=== PATIENT | male | born 1935 | race Caucasian/White ===

== ENCOUNTER → 2019-10-10 09:14 | Outpatient (BNVA) | payer MEDICARE, MEDICAID, SELFPAY | PROVIDERS: Family Provider Family Medicine; PCP Family Medicine; Visit Provider Urology | DX: R33.9 Retention of urine, unspecified (principal); N39.44 Nocturnal enuresis; N40.1 Benign prostatic hyperplasia with lower urinary tract symptoms; N13.8 Other obstructive and reflux uropathy | CPT/HCPCS: 81001 ==

== ENCOUNTER 2019-10-22 09:10 | Outpatient (CLI) | payer MEDICARE, MEDICAID, SELFPAY ==
[2019-10-22 09:23] VITALS: BMI 33.0
--- NOTE | 2019-10-22 09:26 | ECG_ITS ---
NAME OF STUDY: LEXISCAN SESTAMIBI STRESS TEST INDICATION: Coronary Artery Disease PROCEDURE: At the baseline, the blood pressure was 181/93 mm Hg, oxygen saturation 95% with a heart rate of 89 bpm. The electrocardiogram showed normal sinus rhythm, right bundle branch block. The Lexiscan was infused over a period of 20 seconds. A total of 0.4 milligrams of Lexiscan was infused. The stress phase was continued for a total of 5 minutes. Heart rate at the end of the stress phase was 95 bpm, oxygen saturation 95% with a blood pressure 182/96 mmHg. The EKG at the peak infusion revealed sinus rhythm with isolated PVC and no significant ST-T wave changes. Sestamibi was injected 20 seconds after the Lexiscan infusion. Blood pressure at the end of the recovery phase was 181/87 mmHg, oxygen saturation 94% with a heart rate of 96 beats per minute. CONCLUSION: 1. No significant EKG changes with the LexiScan infusion. 2. No LexiScan induced chest pain or cardiac arrhythmia. 3. Baseline hypertension with normal blood pressure and heart rate response. 4. Sestamibi/sestamibi perfusion scan pending; see separate report. Electronically Signed On 10-22-2019 14:52:29 CDT by Ene Alexander M.D. [id number]
--- NOTE | 2019-10-22 09:27 | NMCV_ITS ---
NM yunior perf SPECT r/s* [id number] Dev Laura Age: 84 Gender: M : 1935 Exam Date: 10/22/2019 10:25 Ordering Phys: Ene Alexander MD ([email or web address]) Technologist: DAYSI Carey Exam Location: [facility] Indications: ATHEROSCLEROTIC HEART DISEASE OF [place] CORONARY ARTERY STRESS TEST [facility] IMAGE PROTOCOL Rest/Stress 1 Lexiscan Day Radiopharmaceutical Dose (mCi) Administration Site Administered by Rest: Tc-99m 11.0 IV DAYSI Bains Sestamibi Stress:Tc-99m 32.8 IV DAYSI Bains Sestamibi Rest: 22-Oct-2019 60 Discovery 630 Stress: 22-Oct-2019 30 Discovery 630 0.4mg Lexiscan. Images obtained in supine and prone position. SPECT RESULTS Technical Quality: Excellent Raw Data Analysis: Normal Image Corrections: No attenuation or motion correction applied Summed Stress Score: 3 Summed Rest Score: 1 Summed Difference Score: 2 PERFUSION FINDINGS Small size perfusion abnormality of mild severity of mid inferior and mid inferolateral tsang on supine stress images with improved tracer uptake on prone stress images. This is suggestive of attenuation artifact. FUNCTIONAL RESULTS (calculated via Gated SPECT) Stress Image LV EF (%): 73 Stress EDV (mL):90 TID: 0.98 Stress ESV (mL):24 FUNCTIONAL FINDINGS: The left ventricle is normal in size. Transient Ischemia Dilatation of 0.98. There is normal left ventricular systolic function. The left ventricular ejection fraction is normal with a value of 73%. There is normal left ventricular wall thickening. Normal end-diastolic volume of 90 mL and end-systolic volume of 24 mL. IMPRESSIONS 1. Small sized perfusion abnormality of mild severity of mid inferior and mid inferolateral tsang with improved tracer uptake on prone stress images. This is suggestive of attenuation artifact. 2. Overall left ventricular systolic function is normal without regional wall motion abnormalities. 3. The left ventricular ejection fraction is normal with a value of 73%. 4. This study suggests a low likelihood of angiographically significant coronary artery disease. Ene Alexander MD (Electronically Signed) Final Date: 22 October 2019 15:04 S
--- NOTE | 2019-10-22 11:12 | SUR.PREOP ---
Patient reports no pain or discomfort prior to the start of the procedure.
[2019-10-22] MEDS: regadenoson 0.4 Mg/5 ml Syringe IVP (11:22)
[2019-10-22 11:31] VITALS: BP 181/87; PULSE 98
== END 2019-10-22 09:11 | disposition home or self-care (01) ==
LOC: RAD 09:15
PROVIDERS: Family Provider Family Medicine; PCP Family Medicine; Visit Provider Internal Medicine Cardiovascular Disease
DX: I25.10 Atherosclerotic heart disease of native coronary artery without angina pectoris (principal)
CPT/HCPCS: 78452; 93017; A9500; J2785

== ENCOUNTER → 2020-04-03 09:53 | Outpatient (BNVA) | payer MEDICARE, MEDICAID, SELFPAY | PROVIDERS: Family Provider Family Medicine; PCP Family Medicine; Visit Provider Urology | DX: N40.1 Benign prostatic hyperplasia with lower urinary tract symptoms (principal); N13.8 Other obstructive and reflux uropathy; R82.81 Pyuria; R33.9 Retention of urine, unspecified; N20.9 Urinary calculus, unspecified | CPT/HCPCS: 80053; 81001 ==

== ENCOUNTER → 2021-03-18 13:32 | Outpatient (BNVA) | payer MEDICARE, MEDICAID, SELFPAY | PROVIDERS: Family Provider Family Medicine; PCP Family Medicine; Visit Provider Urology | DX: N20.9 Urinary calculus, unspecified (principal); R82.81 Pyuria; N40.1 Benign prostatic hyperplasia with lower urinary tract symptoms; R33.9 Retention of urine, unspecified; N13.8 Other obstructive and reflux uropathy | CPT/HCPCS: 81003; 87086 ==

== ENCOUNTER 2021-04-08 07:19 | Outpatient (CLI) | payer MEDICARE, MEDICAID, SELFPAY ==
--- NOTE | 2021-04-08 07:15 | US_ITS ---
WS: [id number] ULTRASOUND RENAL TECHNIQUE: Ultrasound examination of both kidneys. CLINICAL INFORMATION: OBSTRUCTION COMPARISON: None. FINDINGS: RIGHT: Right kidney Echogenicity: Normal. Cortical thickness: 1.4 cm; Normal. Hydronephrosis: Mild Perinephric fluid: None. Right kidney measures: 12.3 cm x 4.8 cm x 5.2 cm. LEFT: Left kidney Echogenicity: Normal. Cortical thickness: 0.9 cm; Normal. Hydronephrosis: Mild Perinephric fluid: None. Left kidney measures: 13.3 cm x 5.5 cm x 6.2 cm. Normal visualized aorta. Pacheco catheter. Small amount of debris in the bladder. US/US renal BI* [id number] IMPRESSION: 1. Persistent mild bilateral hydronephrosis appears improved compared to . 2. Pacheco catheter.
== END 2021-04-08 07:20 | disposition home or self-care (01) ==
LOC: RAD 07:23
PROVIDERS: PCP Family Medicine; Visit Provider Urology
DX: N13.8 Other obstructive and reflux uropathy (principal); N40.1 Benign prostatic hyperplasia with lower urinary tract symptoms; Z96.0 Presence of urogenital implants
CPT/HCPCS: 76770; 80048

== ENCOUNTER 2021-04-17 08:01 | Outpatient (CLI) | payer MEDICARE, MEDICAID, SELFPAY ==
--- NOTE | 2021-04-17 08:30 | CT_ITS ---
WS: [id number] CT ABDOMEN AND PELVIS NONCONTRAST HISTORY: bilateral hydronephrosis TECHNIQUE: Imaging performed through the abdomen and pelvis. Coronal and sagittal reformats are submi tted. All CT scans at [facility] use at least one of these dose optimization techniques: auto mated exposure control; mA and/or kV adjustment per patient size (includes targeted exams where dose is matched to clinical indication); or iterative reconstruction. DLP: 1859.46 mGy.cm COMPARISON: Renal ultrasound 04/08/2021 Lower thorax: Lung bases are clear. Visualized heart is normal. Small hiatal hernia. Liver: Liver is mildly enlarged with decreased attenuation from hepatic steatosis. Variable density w ithin the liver are related to areas of sparing and fatty infiltration. Gallbladder: Normal gallbladder. Pancreas: Mild fatty replacement. No mass or duct dilatation. Spleen: Normal. Adrenal glands: Normal. No mass. Right kidney: Mild perinephric stranding. Very mild dilatation of the RIGHT renal pelvis and RIGHT ur eter. No obstructing stones. Left kidney: Mild perinephric stranding with mild to moderate hydronephrosis and hydroureter. Periure teral stranding around the ureter. No obstructing calcification or stones. LEFT obstruction is slight ly greater than the RIGHT. Aorta: Moderate to severe atherosclerosis abdominal aorta. No aneurysm. Atherosclerosis continues int o the common iliac arteries. No free fluid, intraperitoneal air or significant lymphadenopathy. There are a few scattered mesenter ic lymph nodes and retroperitoneal lymph nodes are subcentimeter and probably normal. GI tract: Normal appendix. No obstruction of the colon or wall thickening. Abdominal wall: Fat-containing umbilical hernia. Pelvis: Pacheco catheter present within a minimally distended urinary bladder. There is marked thickeni ng of the bladder wall measuring up to 18 mm. Ureters enter into the bladder wall thickening. No free fluid. No adenopathy. Prostate gland is enlarged with central calcifications. Inguinal canals are pa tent bilaterally containing fat. Osseous structures: Lumbar spondylitic changes. Large anterior osteophytes at L2-3. Mild narrowing of the hip joints bilaterally. CT/CT abdomen pelvis wo con [id number] IMPRESSION: 1. Bilateral hydronephrosis, mild on the RIGHT and mild to moderate on the LEF T. Obstruction appears to be related to diffuse circumferential bladder wall th ickening. 2. Pacheco catheter in the urinary bladder with diffuse bladder wall thickening measuring up to 18 mm in diameter. 3. Subcentimeter mesenteric and retroperitoneal lymph nodes. Do not fit criter ia for adenopathy. 4. Mild bilateral perinephric stranding. 5. Moderate atherosclerosis within the aorta.
== END 2021-04-17 08:02 | disposition home or self-care (01) ==
LOC: CT 08:04
PROVIDERS: PCP Family Medicine; Visit Provider Urology
DX: N13.30 Unspecified hydronephrosis (principal); I70.0 Atherosclerosis of aorta; Z96.0 Presence of urogenital implants
CPT/HCPCS: 74176

== ENCOUNTER → 2021-05-14 09:48 | Outpatient (BNVA) | payer MEDICARE, MEDICAID, SELFPAY | PROVIDERS: PCP Family Medicine; Visit Provider Urology | DX: R33.9 Retention of urine, unspecified (principal); R82.81 Pyuria | CPT/HCPCS: 81003; 87077; 87086; 87184 ==

== ENCOUNTER → 2021-07-21 10:01 | Outpatient (BNVA) | payer MEDICARE, MEDICAID, SELFPAY | PROVIDERS: PCP Family Medicine; Visit Provider Urology | DX: N13.30 Unspecified hydronephrosis (principal); N39.0 Urinary tract infection, site not specified | CPT/HCPCS: 81003 ==

== ENCOUNTER 2021-07-27 13:08 | Outpatient (CLI) | payer MEDICARE, MEDICAID, SELFPAY ==
--- NOTE | 2021-07-27 13:11 | US_ITS ---
WS: [id number] ULTRASOUND RENAL TECHNIQUE: Ultrasound examination of both kidneys. CLINICAL INFORMATION: CKD, STAGE 4; BENIGN PROSTATIC HYPERPLASIA COMPARISON: CT April 17, 2021 and ultrasound April 08, 2021 FINDINGS: Moderate bilateral hydronephrosis with proximal ureterectasis. RIGHT: Echogenicity: Normal. Cortical thickness: 1.3 cm; Normal. Hydronephrosis: None. Perinephric fluid: None. Right kidney measures: 12.4 cm x 4.9 cm x 5.8 cm. LEFT: Echogenicity: Normal. Cortical thickness: 1.3 cm; Normal. Hydronephrosis: None. Perinephric fluid: None. Left kidney measures: 13.6 cm x 4.5 cm x 6.7 cm. Normal visualized aorta. Post void bladder residual 200 cc with multiple diverticula. Numerous intral uminal small bladder polyps. Diffuse bladder wall thickening. Largest diverticuli measures 2 to 3 cm US/US renal BI with PV bladder IMPRESSION: 1. Post void bladder residual volume 200 cc 2. Diffuse bladder wall thickening with numerous small polyps and diverticuli 3. Moderate bilateral hydronephrosis and proximal ureterectasis. This appears progressed compared to CT April 17, 2021 and ultrasound April 08, 2021
== END 2021-07-27 13:09 | disposition home or self-care (01) ==
LOC: RAD 13:10
PROVIDERS: PCP Family Medicine; Visit Provider Nurse Practitioner Family
DX: N18.4 Chronic kidney disease, stage 4 (severe) (principal); N40.1 Benign prostatic hyperplasia with lower urinary tract symptoms; N13.30 Unspecified hydronephrosis
CPT/HCPCS: 76770; 76857

== ENCOUNTER 2021-10-26 08:55 | Outpatient (CLI) | payer MEDICARE, MEDICAID, SELFPAY ==
[2021-10-26 10:12] LABS: Add Urine Culture? No; Bacteria Urine TRACE /hpf
[2021-10-26 10:26] LABS: Albumin Level 4.1 g/dL (3.5-5.2); Ferritin 196 ng/mL (30-400); Iron 62 ug/dL (59-158); Magnesium 2.1 mg/dL (1.7-2.3); Phosphorus 3.5 mg/dL (2.5-4.5); Urine Creatinine 59 mg/dL (39-259)
[2021-10-26 10:31] LABS: Total Protein, Random Urine 60.3 mg/dL (0.0-20.0)
[2021-10-26 10:36] LABS: Calcium 8.8 mg/dL (8.5-10.5)
[2021-10-26 10:42] LABS: Parathyroid Hormone 85.5 pg/mL (15-65)
== END 2021-10-26 08:56 | disposition home or self-care (01) ==
LOC: LAB 08:59
PROVIDERS: PCP Family Medicine; Visit Provider Nurse Practitioner Family
DX: N18.4 Chronic kidney disease, stage 4 (severe) (principal)
CPT/HCPCS: 81001; 82040; 82310; 82570; 82728; 83540; 83735; 83970; 84100; 84156; 84550

== ENCOUNTER 2022-08-10 01:00 | Outpatient (CLI) | payer MEDICARE, MEDICAID, SELFPAY ==
[2022-08-10 11:31] LABS: Basophils # 0.1 10^3/uL (0.0-0.1); Basophils % 0.7 %; Eosinophils # 0.2 10^3/uL (0.0-0.8); Eosinophils % 1.2 %; Hematocrit 26.6 % (42.0-52.0); Hemoglobin 8.6 g/dL (11.7-16.6); Lymphocytes # 6.3 10^3/uL (0.8-4.8); Lymphocytes % 51.1 %; Mean Corpuscular HGB Conc 32.3 g/dL (30.0-36.0); Mean Corpuscular Hemoglobin 29.6 pg (28.0-34.0); Mean Corpuscular Volume 91.4 fl (80-94); Mean Platelet Volume 10.4 fL (7.4-10.4); Monocytes % 7.8 %; Neutrophils # 4.04 10^3/uL (1.8-7.7); Nucleated Red Blood Cells # 0.2 /100WBC; Nucleated Red Blood Cells % 1.6 %; Platelet Count 49 10^3/cmm (130-400); Red Blood Count 2.91 10^6/uL (4.1-5.3); Red Cell Distribution Width 15.7 % (12.1-15.1); White Blood Count 12.2 10^3/uL (4.0-10.0)
[2022-08-10 11:34] LABS: Slide Review Slide Review Perform
[2022-08-10 11:44] LABS: LAB Peripheral Smear Sent for Review
[2022-08-11 14:50] LABS: Leukemia Profile (BBPL) See Report
[2022-08-11 14:51] LABS: Lymphoma Profile (BBPL) See Report
== END 2022-08-10 23:00 | disposition home or self-care (01) ==
LOC: LAB 08-16 15:30
PROVIDERS: PCP Family Medicine; Visit Provider Family Medicine
DX: D72.820 Lymphocytosis (symptomatic) (principal); D64.9 Anemia, unspecified; D69.6 Thrombocytopenia, unspecified
CPT/HCPCS: 36415; 80503; 85025; 88184; 88185

== ENCOUNTER 2022-08-19 06:11 | Outpatient (CLI) | payer MEDICARE, MEDICAID, SELFPAY ==
--- NOTE | 2022-08-19 06:30 | US_ITS ---
WS: [id number] Bilateral renal ultrasound, 08/19/2022 Clinical Data: hydronephrosis Comparison: Renal ultrasound, 07/27/2021 Findings: The right kidney measures 11.6 cm x 6.5 cm x 6.4 cm and the left kidney is 12.1 cm x 6.3 cm x 7.1 cm. There is bilateral renal pelvic dilatation. There are no cysts, masses. The renal cortical margin is normal. No renal calculi are seen. The abdominal aorta shows no vascular abnormalities. The bladder shows irregularity of the wall and numerous diverticula. US/US renal BI* [id number] Impression: 1. Moderate bilateral hydronephrosis unchanged. 2. Bladder wall thickening with probable polyps and numerous diverticula.
== END 2022-08-19 06:12 | disposition home or self-care (01) ==
LOC: RAD 06:12
PROVIDERS: PCP Family Medicine; Visit Provider Internal Medicine Medical Oncology
DX: N13.30 Unspecified hydronephrosis (principal); N32.3 Diverticulum of bladder
CPT/HCPCS: 76770

== ENCOUNTER 2022-08-20 11:10 | Day surgery (SDC) | payer MEDICARE, MEDICAID, SELFPAY ==
[2022-08-19 10:20] VITALS: BMI 30.4
[2022-08-20 11:47] VITALS: BP 114/65; PULSE 87; RESP 18; TEMP 36.6; O2SAT 96
[2022-08-20 11:53] LABS: Glucose Point of Care 154 mg/dL (70-110)
[2022-08-20] MEDS: sodium chloride 0.9% 1,000 ML 30 ML IV (12:06)
--- NOTE | 2022-08-20 12:33 | ANES.PREANE2 ---
Pre-Anesthetic Assessment Height/Weight: Height 1.78 m Weight 96.162 kg Temp Pulse Resp BP Pulse Ox O2 Del Method 97.9 F 87 18 114/65 96 08/20/22 11:47 08/20/22 11:47 08/20/22 11:47 08/20/22 11:47 08/20/22 11:47 08/20/22 11:47 Operation Date: 08/20/22 12:45 Proposed Procedures p Bone Marrow Biospy With Aspiration(Not Applicable) - Rosanne Hebert MD Familial anesthetic complications: none Was Beta Charlie taken within 24 hours: N/A Was Clonidine taken within 24 hours: N/A Last intake: Intake Last Liquid Date 08/19/22 Last Liquid Time 19:00 Last Solid Date 08/19/22 Last Solid Time 19:00 Social No alcohol and No tobacco Exam alert, oriented x 3 and regular rate & rhythm Airway Submandibular: within normal limits Cervical ROM: within normal limits Mallampati: Class II Dentition: false Pulmonary Chronic Obstructive Pulmonary Disease and Sleep Apnea CV/HEM Hypertension CLL Metabolic Diabetes Mellitus, Hyperlipidemia and Morbid Obesity Anesthetic Plan ASA status: 3 Anesthesia: MAC Medications/Allergies Home Medications Medication Instructions Recorded Confirmed Last Taken Type amlodipine 5 mg tablet 5 mg PO DAILY 10/04/19 08/20/22 08/19/22 History glipizide 5 mg tablet 5 mg PO BID 10/04/19 08/20/22 08/19/22 History lovastatin 20 mg tablet 20 mg PO DAILY 10/04/19 08/20/22 08/19/22 History sitagliptin 50 mg tablet 25 mg PO DAILY 10/10/19 08/20/22 08/19/22 History ascorbic acid (vitamin C) 1,000 mg 1 g PO BID 04/08/21 08/20/22 08/19/22 History tablet insulin aspar prot-insulin aspart 5 unit SUBCUT .sliding scale 04/08/21 08/20/22 08/19/22 History 100 unit/mL (70-30) subcutaneous pen (Novolog Mix 70-30FlexPen U-100) hydrocodone 10 mg-acetaminophen 1 tab PO Q6H PRN pain 30 days #120 08/17/22 08/20/22 08/19/22 Rx 325 mg tablet tabs morphine 15 mg tablet,extended 15 mg PO Q12H 30 days #60 tabs 08/17/22 08/20/22 08/20/22 Rx release sennosides 8.6 mg-docusate sodium 2 tab-cap PO BID PRN constipation 08/17/22 08/20/22 08/19/22 Rx 50 mg capsule (Senna Plus) #120 caps finasteride 5 mg tablet 5 mg PO DAILY 08/20/22 08/20/22 08/19/22 History tamsulosin 0.4 mg capsule 0.4 mg PO BID 08/20/22 08/20/22 08/19/22 History Allergies Allergy/AdvReac Type Severity Reaction Status Date / Time No Known Allergies Allergy Verified 08/20/22 11:39 Current Medications Generic Name Dose Route Start Last Admin Trade Name Freq PRN Reason Stop Dose Admin Sodium Chloride 1,000 mls @ 30 mls/hr 08/20/22 11:45 08/20/22 12:06 Sodium Chloride 0.9% IV 08/21/22 11:44 30 mls/hr .Q24H ALFRED Administration PFSH Anesthesia Medical History (Updated 08/18/22 @ 07:56 by Jeff Matthew MD) Bilateral hydronephrosis BPH with urinary obstruction Chronic kidney disease Diabetes Elevated PSA History of bladder stone CYSTOLITHOLAPAXY,LASER LITHOTRIPSY HTN (hypertension) Hyperlipidemia Nocturnal enuresis Recurrent UTI Urinary retention Urolithiasis Surgical History (Updated 08/18/22 @ 07:57 by Jeff Matthew MD) History of lithotripsy History of right cataract extraction Family History Father , AT AGE 64 Myocardial infarction Brother Myocardial infarction H/O CABG in 80's Brother CAD (coronary artery disease) Mother , AT AGE 85 CAD (coronary artery disease) Sister CAD (coronary artery disease) Other Diabetes Heart failure Social History Quit status (tobacco): has quit using tobacco Year quit tobacco: 1979 Alcohol intake: former Adopted: No Caregiver/support person: No Lives independently: No Marital status: / Current occupational status: retired History of recent travel: No Current gender identity: Male Data Anesthesia Cardiac Studies: Sestamibi Stress Test (Cardiology) 10/22/19
--- NOTE | 2022-08-20 12:54 | W.PM.OPSUD ---
Surgery/Procedure H&P Update DATE OF PROCEDURE: August 20, 2022 DATE H&P PERFORMED: 08/20/22 CHANGES TO PREVIOUS DOCUMENTATION: Patient seen and examined, no new changes since his visit to Dr. Matthew's office. His lab work-up was reviewed which showed thrombocytopenia, anemia and as his PSA level is more than 600, his osseous lesions are Probably due to metastatic prostate cancer rather than other primary like myeloma. Case was discussed with Dr. Matthew and About new information e.g. elevated PSA level ,he suggested to cancel the bone marrow procedure. And Dr. Matthew has prescribed bicalutamide 50 mg p.o. daily and patient will follow-up with him in his clinic for further planning and management. Patient and his son were informed about cancellation of bone marrow due to new information e.g. Elevated PSA level indicating Probability of bone mets from metastatic prostate cancer. PLANNED PROCEDURE: Operation Date: 08/20/22 12:45 Proposed Procedures p Bone Marrow Biospy With Aspiration(Not Applicable) - Rosanne Hebert MD
--- NOTE | 2022-08-20 13:03 | PC.NURSE ---
Dr Hebert canceled bone marrow after discussing lab results and case with Dr Matthew again. Family at bedside. All verbalized understanding.
== END 2022-08-20 13:10 | disposition home or self-care (01) ==
LOC: GILAB 11:13
PROVIDERS: PCP Family Medicine; Visit Provider Internal Medicine Hematology & Oncology
PROC: 07DT3ZX Extraction of Bone Marrow, Percutaneous Approach, Diagnostic (ICD-10-PCS; CPT 38222; principal; 2022-08-20 12:45)
DX: C91.10 Chronic lymphocytic leukemia of B-cell type not having achieved remission (principal); Z53.8 Procedure and treatment not carried out for other reasons
CPT/HCPCS: 36415; 36416; 82962; J2704; J7030

== ENCOUNTER 2022-08-25 16:08 | Inpatient (IN) | payer MEDICARE, MEDICAID, SELFPAY ==
--- NOTE | 2022-08-25 16:43 | PM.HP ---
Providers/Chief Complaint Admitting Physician: Daryl Phelps MD Primary Care Provider: Janett Phelps MD Chief Complaint: Acute kindney injury, prostate cancer, dehydration History of Present Illness Dev Laura is a 87 year old male presenting as a direct admission from oncology clinic with acute kidney injury. He has had failure to thrive lately with strict menaced p.o. intake, rising creatinine, recent diagnosis of prostate cancer and CLL. He has been having issues urinating and a Pacheco was placed today in oncology clinic for a residual of 500 cc and a renal ultrasound showing bilateral hydronephrosis, moderate with bladder wall thickening. Preceding this patient has had some back pain, since April. He has had diminished energy. He has had difficulty urinating for quite some time. Review of Systems General: Reports: 10 or more systems reviewed and unremarkable except in HPI and below Const: Reports: fatigue; Denies: fever(s) or chills Eyes: Denies: change in vision ENMT: Denies: throat pain Card: Denies: chest pain Resp: Denies: dyspnea GI: Reports: early satiety; Denies: hematochezia or melena : Reports: difficulty urinating Musc: Reports: back pain Skin/Breast: Denies: rash Neuro: Denies: headache(s) Psych: Denies: anxiety or depression Endo: Denies: polyuria Jeff/Lymph: Denies: easy bruising All/Imm: Denies: urticaria Medications/Allergies Home Medications Medication Instructions Recorded Confirmed Last Taken Type lovastatin 20 mg tablet 20 mg PO DAILY 10/04/19 08/24/22 08/19/22 History ascorbic acid (vitamin C) 1,000 mg 1 g PO BID 04/08/21 08/24/22 08/19/22 History tablet hydrocodone 10 mg-acetaminophen 1 tab PO Q6H PRN pain 30 days #120 08/17/22 08/24/22 08/19/22 Rx 325 mg tablet tabs morphine 15 mg tablet,extended 15 mg PO Q12H 30 days #60 tabs 08/17/22 08/24/22 08/20/22 Rx release sennosides 8.6 mg-docusate sodium 2 tab-cap PO BID PRN constipation 08/17/22 08/24/22 08/19/22 Rx 50 mg capsule (Senna Plus) #120 caps bicalutamide 50 mg tablet 50 mg PO DAILY #30 tabs 08/20/22 08/24/22 Unknown Rx finasteride 5 mg tablet 5 mg PO DAILY 08/20/22 08/24/22 08/19/22 History tamsulosin 0.4 mg capsule 0.4 mg PO BID 08/20/22 08/24/22 08/19/22 History lorazepam 1 mg tablet 0.5 - 1 mg PO Q6H PRN Severe 08/24/22 Unknown Rx Nausea #30 tabs prochlorperazine maleate 10 mg 10 mg PO Q4H PRN Mild Nausea #30 08/24/22 Unknown Rx tablet (Compazine) tabs methenamine hippurate 1 gram tablet 1 g PO BID 08/25/22 08/25/22 Unknown History Allergies Allergy/AdvReac Type Severity Reaction Status Date / Time No Known Allergies Allergy Verified 08/24/22 10:37 PFSH Acute PFSH: Medical History (Updated 08/25/22 @ 16:48 by Daryl Phelps MD) Bilateral hydronephrosis BPH with urinary obstruction Chronic kidney disease Chronic lymphocytic leukemia Diabetes Elevated PSA History of bladder stone CYSTOLITHOLAPAXY,LASER LITHOTRIPSY HTN (hypertension) Hyperlipidemia Nocturnal enuresis Prostate cancer Recurrent UTI Urinary retention Urolithiasis Surgical History History of lithotripsy History of right cataract extraction Family History Father , AT AGE 64 Myocardial infarction Brother Myocardial infarction H/O CABG in 80's Brother CAD (coronary artery disease) Mother , AT AGE 85 CAD (coronary artery disease) Sister CAD (coronary artery disease) Other Diabetes Heart failure Social History Quit status (tobacco): has quit using tobacco Year quit tobacco: 1979 Alcohol intake: former Adopted: No Caregiver/support person: No Lives independently: No Marital status: / Current occupational status: retired History of recent travel: No Current gender identity: Male Physical Exam Narrative: General exam demonstrates a conversive male, no distress HEENT: Atraumatic normocephalic pupils equally round. Oropharynx clear. Neck is supple no lymphadenopathy or thyromegaly Cardiovascular regular rate and rhythm without murmur, no S3 or S4 Lungs clear no wheezing or crackles Abdomen is soft, protuberant, positive bowel sounds. No obvious organomegaly. Umbilical hernia is noted easily reducible. exams deferred Extremities show trace edema bilaterally. No cyanosis or clubbing Skin no rash Neuro no focal deficits. Data Other Labs: CBC from yesterday reviewed. Platelet count 30,000, hemoglobin 9.8, white blood cell count 12.9 BMP from today reviewed and anion gap 19, bicarb 15, BUN 147, creatinine 2.9 up from his baseline around 2. Glucose slightly elevated at 147. Renal ultrasound on August 19, see reading A&P Assessment and plan (1) Acute kidney injury: Patient presents with acute kidney injury. This is most likely secondary to his bladder outlet obstruction, but certainly could be secondary to extracellular volume depletion and dehydration as well. Last residual checked was 500 cc. Urinary catheter was placed this morning in oncology clinic. Continue catheter Normal saline at 100 cc an hour Reassessment of bicarb in the morning. If drops/not improving could consider sodium bicarb by mouth Check urinalysis No further imaging of the urinary tract is likely needed. Check CK with a.m. labs (2) Bilateral hydronephrosis: Likely secondary to chronic bladder outlet obstruction He has been told to self cath intermittently in the past but has not been doing this Pacheco was placed this morning, will continue (3) Prostate cancer: Recently diagnosed with prostate cancer Continue Casodex Add dexamethasone 4 mg twice daily. Discussed with oncology. Close follow-up of blood sugar (4) Chronic lymphocytic leukemia: This explains elevated white count, perhaps low platelets. He also has a degree of anemia. Will go ahead and check a haptoglobin level Secondary to thrombocytopenia anticoagulation is contraindicated (5) Diabetes: Sliding scale insulin Consistent carb diet, although I told his family if there are any specific desires considering his significant decrease in p.o. intake lately it would be okay to accommodate them. Plan Back pain, secondary to his prostate cancer with bony mets. Continue pain medicine as needed. Attestations Medical Necessity Statement*: Will need greater than 2 midnight stay secondary to acute kidney injury, significant urinary retention, severe thrombocytopenia Coding Level of Care Code Acute Media Developer for Lenny Keene Diagnoses Acute kidney injury N17.9 Bilateral hydronephrosis N13.30 Prostate cancer C61 Chronic lymphocytic leukemia C91.10 Diabetes E11.9
[2022-08-25] MEDS: morphine ER (12 HR) 15 mg Tablet PO (18:32)
[2022-08-25] MEDS: dexamethasone 4 mg Tablet PO (18:33)
[2022-08-25] MEDS: sodium chloride 0.9% 1,000 ML 100 ML IV (18:33)
[2022-08-25] MEDS: tamsulosin 0.4 mg Capsule PO (18:33)
[2022-08-25] MEDS: ascorbic acid 500 mg Tablet 1000 MG PO (18:33)
[2022-08-25] MEDS: insulin lispro 100 unit/1 mL SUBCUT ×2 (18:35→21:14)
[2022-08-25 20:00] VITALS: BP 127/67; PULSE 93; RESP 17; TEMP 36.7; O2SAT 96
[2022-08-26] VITALS: BP 152/72; PULSE 92; RESP 18; TEMP 36.4; O2SAT 95
[2022-08-26] MEDS: sodium chloride 0.9% 1,000 ML 100 ML IV ×2 (03:12→13:22)
[2022-08-26 04:00] VITALS: BP 135/70; PULSE 89; RESP 20; TEMP 36.7; O2SAT 95
[2022-08-26] MEDS: morphine ER (12 HR) 15 mg Tablet PO ×2 (05:32→18:47)
[2022-08-26 05:50] LABS: Basophils # 0.1 10^3/uL (0.0-0.1); Basophils % 0.6 %; Eosinophils # 0.1 10^3/uL (0.0-0.8); Eosinophils % 0.6 %; Hematocrit 26.9 % (42.0-52.0); Hemoglobin 8.5 g/dL (11.7-16.6); Lymphocytes # 6.6 10^3/uL (0.8-4.8); Lymphocytes % 53.1 %; Mean Corpuscular HGB Conc 31.6 g/dL (30.0-36.0); Mean Corpuscular Hemoglobin 29.5 pg (28.0-34.0); Mean Corpuscular Volume 93.4 fl (80-94); Mean Platelet Volume 10.3 fL (7.4-10.4); Monocytes # 0.9 10^3/uL (0.2-0.9); Monocytes % 7.2 %; Neutrophils # 4.04 10^3/uL (1.8-7.7); Neutrophils % 32.5 %; Nucleated Red Blood Cells # 0.2 /100WBC; Nucleated Red Blood Cells % 1.2 %; Red Blood Count 2.88 10^6/uL (4.1-5.3); Red Cell Distribution Width 16.5 % (12.1-15.1); White Blood Count 12.4 10^3/uL (4.0-10.0)
[2022-08-26 06:20] LABS: Platelet Count 23 10^3/cmm (130-400)
[2022-08-26 06:30] LABS: Alanine Aminotransferase 9 U/L (0-41); Albumin Level 3.1 g/dL (3.5-5.2); Alkaline Phosphatase 352 U/L (40-130); Anion Gap 19.4 (5-19); Aspartate Amino Transferase 13 U/L (0-40); Calcium 8.9 mg/dL (8.5-10.5); Carbon Dioxide 15 mmol/L (22-29); Chloride 113 mmol/L (98-107); Creatine Phosphokinase 33 U/L (39-308); Globulin 2.8 g/dL (1.3-4.6); Glucose 204 mg/dL (65-115); Magnesium 2.2 mg/dL (1.7-2.3); Potassium 5.4 mmol/L (3.5-5.1); Sodium 142 mmol/L (136-145); Total Bilirubin 0.4 mg/dL (0.15-1.2); Total Protein 5.9 g/dL (6.6-8.7)
[2022-08-26 06:38] LABS: Blood Urea Nitrogen 123 mg/dL (8-23); Osmolality Calculated 339 mOsm/kg (285-295)
[2022-08-26] MEDS: finasteride 5 mg Tablet PO (07:58)
[2022-08-26] MEDS: tamsulosin 0.4 mg Capsule PO ×2 (07:59→18:44)
[2022-08-26] MEDS: ascorbic acid 500 mg Tablet 1000 MG PO ×2 (07:59→18:44)
[2022-08-26] MEDS: dexamethasone 4 mg Tablet PO ×2 (07:59→18:44)
[2022-08-26 08:00] VITALS: BP 148/67; PULSE 92; RESP 17; TEMP 36.4; O2SAT 96
[2022-08-26] MEDS: sodium bicarbonate 650 mg Tablet PO ×2 (09:46→18:44)
[2022-08-26] MEDS: insulin lispro 100 unit/1 mL SUBCUT ×4 (09:46→20:40)
--- NOTE | 2022-08-26 10:57 | PC.CHAP ---
Pastoral Care Encounter/Spiritual Assessment Type of Contact [] Declined event mgr visit [] Patient/Family/Request visit [] Outpatient visit [] Follow-up visit [] Physician referral [] Code/Alert [x] Routine visit [] Staff referral [] Actively dying [] Patient sleeping [] Family support [] [] Out of room [] Palliative care [] [x] Receiving care in room [] Pre-surgical visit [] Trauma [] Long length of stay [] ICU visit [] Other: Relational/Emotional Strength [x] Patient feels connected with others/family/visitors/staff [] Distress [] Loneliness/isolation [] Abandonment Spirituality of Patient [x] Person of [place] [] Attends Advent of their [place] [x] Believes in Prayer [] Reads Bible or Alevism materials [] There are Spiritual issues to be addressed Rn Office Interventions [x] Prayer [x] Active listening [x] Non-anxious presence [x] Spiritual/emotional support [] Crisis/trauma care [x] Spiritual counseling [] Bereavement support [] Provided bereavement packet [] Provided Bible/devotional materials [] Provided toy/stuffed animal, coloring book to patient or family member [] Provided Communion [] Anointing/[place] [] Salvation [x] Completed spiritual assessment [] Other: Impact on Illness or Injury [] Angry [] Fearful [] Anxious [] Often cries [] Exhaustion [] Unable to work [] Unable to attend sikh [] Unable to walk/stand [] Unable to read [] Unable to drive [] Unable to eat/drink [] Unable to sleep [] Unable to be with family [] Patient intubated [] Other: Summary first time kindney infection has some negative feelings not sure when she can go home Time spent with patient 10 mins
--- NOTE | 2022-08-26 11:16 | P.PN_ITS ---
Subjective Subjective: Dev reports he feels little bit better. Reports he has less back pain. Medications: Reviewed: Yes Vitals/I&O/Wt Last Vital Signs Temp 97.6 F 08/26/22 08:00 Pulse 92 08/26/22 08:00 Resp 17 08/26/22 08:00 BP 148/67 08/26/22 08:00 Pulse Ox 96 08/26/22 08:00 O2 Del Method 08/25/22 18:16 08/25/22 08/26/22 08/26/22 22:59 06:59 14:59 Intake Total 100 / 100 1565 / 1665 Output Total 850 / 850 1550 / 2400 Balance -750 / -750 15 / -735 Physical Exam Narrative: General exam demonstrates a conversive male, no distress Neck is supple no lymphadenopathy or thyromegaly Cardiovascular regular rate and rhythm without murmur, no S3 or S4 Lungs clear no wheezing or crackles Abdomen is soft, protuberant, positive bowel sounds. No obvious organomegaly. Umbilical hernia is noted easily reducible. exams demonstrates Pacheco noted Extremities show trace edema bilaterally. No cyanosis or clubbing Skin no rash Urinary Catheter Management: Pacheco: Cath Placed During This Visit: no Reason for Continuing Indwelling Catheter: Acute Urinary Retention or Obstruction Data 08/26/22 05:01 08/26/22 05:01 A&P Assessment and plan (1) Acute kidney injury: Patient presents with acute kidney injury. This is most likely secondary to his bladder outlet obstruction, but certainly could be secondary to extracellular volume depletion and dehydration as well. Last residual checked was 500 cc. Urinary catheter was placed this morning in oncology clinic. Continue catheter Normal saline at 100 cc an hour Initiate bicarb Check urinalysis. Still awaiting No further imaging of the urinary tract is likely needed. CK was not elevated Renal function appears to be improving (2) Bilateral hydronephrosis: Likely secondary to chronic bladder outlet obstruction He has been told to self cath intermittently in the past but has not been doing this Pacheco was placed this morning, will continue (3) Prostate cancer: Recently diagnosed with prostate cancer Continue Casodex Continue dexamethasone 4 mg twice daily. Discussed with oncology. Close follow-up of blood sugar (4) Chronic lymphocytic leukemia: This explains elevated white count, perhaps low platelets. He also has a degree of anemia. Haptoglobin level not low Secondary to thrombocytopenia anticoagulation is contraindicated (5) Diabetes: Sliding scale insulin Consistent carb diet, although I told his family if there are any specific desires considering his significant decrease in p.o. intake lately it would be okay to accommodate them. Plan Back pain, secondary to his prostate cancer with bony mets. Continue pain medicine as needed. Attestations Medical Necessity Statement*: Needs continued hospital stay for close follow- up of acute kidney injury, currently slightly improved Coding Level of Care Code Acute Research Support Specialist for L[facility] Diagnoses Acute kidney injury N17.9 Bilateral hydronephrosis N13.30 Prostate cancer C61 Chronic lymphocytic leukemia C91.10 Diabetes E11.9
[2022-08-26 12:00] VITALS: BP 135/70; PULSE 104; RESP 16; TEMP 36.9; O2SAT 94
[2022-08-26] MEDS: polyethylene glycol 3350 Pkt 17 gm PO ×2 (13:22→18:43)
[2022-08-26 13:39] LABS: Add Urine Microscopic? YES; Bilirubin Urine Neg (Negative); Blood Urine 3+ (Negative); Glucose Urine UA Norm (Normal); Ketones Urine 1+ (Negative); Leukocyte Esterase Urine Trace (Negative); Nitrate Urine Negative (Negative); Protein Urine 2+ (Negative); Specific Gravity, Urine 1.015 (1.005-1.030); Urine Appearance Cloudy (CLEAR); Urine Color Yellow (Yellow); Urobilinogen Urine Neg (Negative); pH Urine 5 (5-7)
[2022-08-26 13:40] LABS: Add Urine Culture? No; Mucus Urine 1+ /hpf; RBC Urine 15-25 /hpf (0-2); Uric Acid Crystals Urine 0-4 /hpf
[2022-08-26] MEDS: bisacodyl 10 mg Supp PR (15:14)
[2022-08-26] MEDS: cefTRIAXone 1,000 MG in sodium chloride 0.9% (plus) 50 ML 100 MG IV (15:14)
[2022-08-26 16:00] VITALS: BP 100/44; PULSE 86; RESP 16; TEMP 36.4; O2SAT 96
[2022-08-26 17:37] LABS: Glucose Point of Care 466 mg/dL (70-110)
[2022-08-26 19:30] VITALS: BP 134/67; PULSE 90; RESP 16; TEMP 36.5; O2SAT 96
[2022-08-26 20:48] LABS: Glucose Point of Care 464 mg/dL (70-110)
[2022-08-26 20:48] LABS: Glucose Point of Care 468 mg/dL (70-110)
[2022-08-27] VITALS (11 sets, daily range): BP systolic 130–165; BP diastolic 60–72; PULSE 83–99; RESP 16–19; TEMP 36.4–36.7; O2SAT 92–97
[2022-08-27] MEDS: sodium chloride 0.9% 1,000 ML 100 ML IV ×3 (00:27→23:03)
[2022-08-27 05:08] LABS: Basophils # 0.1 10^3/uL (0.0-0.1); Basophils % 0.5 %; Eosinophils % 0.3 %; Hematocrit 25.8 % (42.0-52.0); Lymphocytes # 6.4 10^3/uL (0.8-4.8); Lymphocytes % 48.7 %; Mean Corpuscular Volume 93.5 fl (80-94); Mean Platelet Volume 11.6 fL (7.4-10.4); Neutrophils # 4.85 10^3/uL (1.8-7.7); Neutrophils % 37.1 %; Nucleated Red Blood Cells # 0.1 /100WBC; Nucleated Red Blood Cells % 0.8 %; Red Blood Count 2.76 10^6/uL (4.1-5.3); Red Cell Distribution Width 16.5 % (12.1-15.1); White Blood Count 13.1 10^3/uL (4.0-10.0)
[2022-08-27] MEDS: morphine ER (12 HR) 15 mg Tablet PO ×2 (05:22→16:39)
[2022-08-27 05:24] LABS: Platelet Count 23 10^3/cmm (130-400)
[2022-08-27 05:33] LABS: Anion Gap 17.7 (5-19); Carbon Dioxide 16 mmol/L (22-29); Chloride 113 mmol/L (98-107); Glucose 305 mg/dL (65-115); Magnesium 2.2 mg/dL (1.7-2.3); Osmolality Calculated 336 mOsm/kg (285-295); Potassium 5.7 mmol/L (3.5-5.1); Sodium 141 mmol/L (136-145)
[2022-08-27 06:16] LABS: Blood Urea Nitrogen 104 mg/dL (8-23)
[2022-08-27 06:40] LABS: Glucose Point of Care 350 mg/dL (70-110)
--- NOTE | 2022-08-27 06:52 | PM.PN ---
Subjective Subjective: Dev reports he feels okay. States he has more energy. No nausea. Medications: Reviewed: Yes Vitals/I&O/Wt Last Vital Signs Temp 97.9 F 08/27/22 04:00 Pulse 89 08/27/22 04:00 Resp 18 08/27/22 04:00 BP 136/72 08/27/22 04:00 Pulse Ox 95 08/27/22 04:00 O2 Del Method 08/25/22 18:16 08/26/22 08/26/22 08/27/22 14:59 22:59 06:59 Intake Total 925 / 925 948.333 / 1873.333 801.667 / 2675.000 Output Total 800 / 800 1000 / 1800 Balance 925 / 925 148.333 / 1073.333 -198.333 / 875.000 Physical Exam Narrative: General exam demonstrates no distress Neck is supple no lymphadenopathy or thyromegaly Cardiovascular regular rate and rhythm without murmur, no S3 or S4 Lungs clear no wheezing or crackles Abdomen is soft, protuberant, positive bowel sounds. No obvious organomegaly. Umbilical hernia is noted easily reducible. exams demonstrates Pacheco noted, urine clear Extremities show trace edema bilaterally. No cyanosis or clubbing Skin no rash Urinary Catheter Management: Pacheco: Cath Placed During This Visit: no Reason for Continuing Indwelling Catheter: Accurate Measurement of Urinary Output in Critically Ill Patients Data 08/27/22 04:15 08/27/22 04:15 A&P Assessment and plan (1) Acute kidney injury: Patient presents with acute kidney injury. This is most likely secondary to his bladder outlet obstruction, but certainly could be secondary to extracellular volume depletion and dehydration as well. Last residual checked was 500 cc. Urinary catheter was placed this morning in oncology clinic. Continue catheter Normal saline at 100 cc an hour Continue bicarb. Anion gap improving Urinalysis equivocal for infection. Rocephin initiated. No further imaging of the urinary tract is likely needed. CK was not elevated Renal function appears to be improving (2) Bilateral hydronephrosis: Likely secondary to chronic bladder outlet obstruction He has been told to self cath intermittently in the past but has not been doing this Pacheco was placed this morning, will continue (3) Prostate cancer: Recently diagnosed with prostate cancer Continue Casodex Continue dexamethasone 4 mg twice daily. Discussed with oncology. Close follow-up of blood sugar Low platelets and low hemoglobin may be secondary to prostate cancer invasion of bone marrow Secondary to markedly low platelets, and hemoglobin now 8 we will go ahead and transfuse. He certainly does not have much reserve should he bleed with his platelet count in the 20s. Risks and benefits discussed with patient. (4) Chronic lymphocytic leukemia: This explains elevated white count, perhaps low platelets. He also has a degree of anemia. Haptoglobin level not low Secondary to thrombocytopenia anticoagulation is contraindicated (5) Diabetes: Sliding scale insulin Consistent carb diet, although I told his family if there are any specific desires considering his significant decrease in p.o. intake lately it would be okay to accommodate them. Plan Hyperkalemia. Despite IV fluids, higher today. Kayexalate 30 g p.o. now, repeat potassium this afternoon Back pain, secondary to his prostate cancer with bony mets. Continue pain medicine as needed. Attestations Medical Necessity Statement*: Needs continued hospital stay for close monitoring of renal function, potassium, transfusion Coding Level of Care Code Acute Code for [facility] Diagnoses Acute kidney injury N17.9 Bilateral hydronephrosis N13.30 Prostate cancer C61 Chronic lymphocytic leukemia C91.10 Diabetes E11.9
[2022-08-27] MEDS: sodium bicarbonate 650 mg Tablet PO ×2 (08:07→16:39)
[2022-08-27] MEDS: tamsulosin 0.4 mg Capsule PO ×2 (08:07→16:38)
[2022-08-27] MEDS: sodium polystyrene sulfonate 15 gm/60 mL Btl 30 GM PO (08:07)
[2022-08-27] MEDS: dexamethasone 4 mg Tablet PO (08:07)
[2022-08-27] MEDS: polyethylene glycol 3350 Pkt 17 gm PO ×2 (08:07→16:38)
[2022-08-27] MEDS: finasteride 5 mg Tablet PO (08:07)
[2022-08-27] MEDS: insulin lispro 100 unit/1 mL SUBCUT ×4 (08:11→20:41)
[2022-08-27 12:33] LABS: Glucose Point of Care 337 mg/dL (70-110)
[2022-08-27] MEDS: cefTRIAXone 1,000 MG in sodium chloride 0.9% (plus) 50 ML 100 MG IV (13:19)
[2022-08-27 15:03] LABS: Anion Gap 17.5 (5-19); Calcium 7.9 mg/dL (8.5-10.5); Carbon Dioxide 17 mmol/L (22-29); Chloride 112 mmol/L (98-107); Glucose 345 mg/dL (65-115); Osmolality Calculated 335 mOsm/kg (285-295); Potassium 5.5 mmol/L (3.5-5.1); Sodium 141 mmol/L (136-145)
[2022-08-27 15:27] LABS: Blood Urea Nitrogen 95 mg/dL (8-23)
[2022-08-27] MEDS: sodium polystyrene sulfonate 15 gm/60 mL Btl PO (16:38)
[2022-08-27] MEDS: dexamethasone 4 mg Tablet 2 MG PO (16:39)
[2022-08-27] MEDS: sodium chloride 0.9% 100 mL Bag 50 ML IV (16:45)
[2022-08-27 17:22] LABS: Glucose Point of Care 472 mg/dL (70-110)
[2022-08-27 21:02] LABS: Glucose Point of Care 504 mg/dL (70-110)
[2022-08-27 21:02] LABS: Glucose Point of Care 552 mg/dL (70-110)
[2022-08-28] VITALS: BP 159/72; PULSE 90; RESP 15; TEMP 36.9; O2SAT 96
[2022-08-28 03:37] VITALS: BP 157/76; PULSE 90; RESP 15; TEMP 36.7; O2SAT 95
[2022-08-28] MEDS: morphine ER (12 HR) 15 mg Tablet PO ×2 (04:56→18:09)
[2022-08-28 05:24] LABS: Basophils # 0.1 10^3/uL (0.0-0.1); Basophils % 0.4 %; Eosinophils # 0.1 10^3/uL (0.0-0.8); Eosinophils % 0.4 %; Hematocrit 28.6 % (42.0-52.0); Hemoglobin 9.2 g/dL (11.7-16.6); Lymphocytes # 6.8 10^3/uL (0.8-4.8); Lymphocytes % 48.3 %; Mean Corpuscular HGB Conc 32.2 g/dL (30.0-36.0); Mean Corpuscular Hemoglobin 29.9 pg (28.0-34.0); Mean Corpuscular Volume 92.9 fl (80-94); Mean Platelet Volume 11.8 fL (7.4-10.4); Monocytes # 1.2 10^3/uL (0.2-0.9); Monocytes % 8.2 %; Neutrophils # 4.94 10^3/uL (1.8-7.7); Nucleated Red Blood Cells # 0.2 /100WBC; Nucleated Red Blood Cells % 1.5 %; Red Blood Count 3.08 10^6/uL (4.1-5.3); Red Cell Distribution Width 16.8 % (12.1-15.1); White Blood Count 14.1 10^3/uL (4.0-10.0)
[2022-08-28 05:58] LABS: Anion Gap 16.8 (5-19); Calcium 7.9 mg/dL (8.5-10.5); Carbon Dioxide 18 mmol/L (22-29); Chloride 111 mmol/L (98-107); Glucose 352 mg/dL (65-115); Osmolality Calculated 332 mOsm/kg (285-295); Potassium 4.8 mmol/L (3.5-5.1); Sodium 141 mmol/L (136-145)
[2022-08-28 06:07] LABS: Slide Review Slide Review Perform
[2022-08-28 06:08] LABS: Platelet Count 28 10^3/cmm (130-400)
[2022-08-28 06:15] LABS: Blood Urea Nitrogen 85 mg/dL (8-23)
[2022-08-28 06:50] LABS: Glucose Point of Care 324 mg/dL (70-110)
[2022-08-28 08:00] VITALS: BP 166/72; PULSE 91; RESP 18; TEMP 36.6; O2SAT 94
[2022-08-28] MEDS: finasteride 5 mg Tablet PO (08:45)
[2022-08-28] MEDS: sodium bicarbonate 650 mg Tablet PO ×2 (08:45→18:08)
[2022-08-28] MEDS: dexamethasone 4 mg Tablet 2 MG PO ×2 (08:45→18:09)
[2022-08-28] MEDS: tamsulosin 0.4 mg Capsule PO ×2 (08:45→18:09)
[2022-08-28] MEDS: insulin lispro 100 unit/1 mL SUBCUT ×4 (08:46→20:42)
[2022-08-28 11:32] LABS: Glucose Point of Care 420 mg/dL (70-110)
--- NOTE | 2022-08-28 11:49 | PC.SOCIAL ---
IMM Update pg 2 of IMM updated and reviewed w/ patients granddaughter who is @ bedside. Copy provided and Copy dated, initialed and placed in chart.
[2022-08-28 12:00] VITALS: BP 159/69; PULSE 82; RESP 17; TEMP 36.4; O2SAT 96
[2022-08-28] MEDS: cefTRIAXone 1,000 MG in sodium chloride 0.9% (plus) 50 ML 100 MG IV (15:08)
[2022-08-28 16:00] VITALS: BP 161/73; PULSE 79; RESP 17; TEMP 36.8; O2SAT 95
[2022-08-28] MEDS: sodium chloride 0.9% 1,000 ML 100 ML IV (16:36)
--- NOTE | 2022-08-28 16:40 | PM.PN ---
Subjective Subjective: Patient reports that he is feeling some better today. Daughters are present and they described patient as having a worsening bedsore. States that the nurse has looked at it and was felt that this developed very recently. Patient denies any fever, chills. He does endorse having some diarrhea recently, and he is having quite a bit of pain in the region. Daughters have been trying to turn him from side to side to keep pressure off of his bottom. Medications: Reviewed: Yes Vitals/I&O/Wt Last Vital Signs Temp 97.6 F 08/28/22 12:00 Pulse 82 08/28/22 12:00 Resp 17 08/28/22 12:00 BP 159/69 08/28/22 12:00 Pulse Ox 96 08/28/22 12:00 O2 Del Method 08/28/22 12:00 08/28/22 08/28/22 08/28/22 06:59 14:59 22:59 Intake Total 360 / 2125 1720 / 1720 50 / 1770 Output Total 800 / 3700 1000 / 1000 Balance -440 / -1575 720 / 720 50 / 770 Physical Exam Narrative: General: Cooperative patient in no apparent distress. Well developed. HEENT: Normocephalic, Atraumatic. External ears normal. Nasal passages patent without drainage. MMM. Heart: Regular rate and rhythm. Resp: Lungs clear to auscultation no respiratory distress, no use of accessory muscles. Abd: Soft, nontender non-distended. Extremities: No edema. Skin: Sacral decubitus ulcer is present with macerated tissue and well visualized dermis. Urinary Catheter Management: Pacheco: Cath Placed During This Visit: no Reason for Continuing Indwelling Catheter: Acute Urinary Retention or Obstruction Data 08/28/22 04:12 08/28/22 04:12 A&P Assessment and plan (1) Acute kidney injury: (2) Bilateral hydronephrosis: (3) Prostate cancer: (4) Chronic lymphocytic leukemia: (5) Diabetes: Plan 87-year-old male who was admitted for acute kidney injury, bilateral hydronephrosis, and currently undergoing treatment for prostate CA and CLL. Continue close inpatient monitoring. Patient has a stage II-III sacral decubitus ulcer. We will start on a every 2 hours turning schedule. Order for nursing/wound care to evaluate and treat. He continues to have an indwelling catheter, and this may be necessary given his presentation to the hospital. Urine does appear normal in color today. Continue Rocephin. He was treated for hyperkalemia with Kayexalate. His potassium is normal at this time. Recheck am labs. Back pain, secondary to his prostate cancer with bony mets. Continue pain medicine as needed. He did receive transfusion yesterday. His platelets are still very low, 28,000. Continue DVT prophylaxis with SCDs. Oncology has recommended that he continue with dexamethasone 4 mg twice daily for his prostate cancer. In addition we will continue his Casodex. Continue sliding scale insulin and carb consistent diet. CODE STATUS: Full code DVT PPx: SCDs GI PPx: None IVF: None Diet: CHO consistent. Discharge: SNF vs. Attestations Medical Necessity Statement*: Needs continued hospital stay for close monitoring of renal function, potassium, transfusion Time Spent in Patient Care: 16 - 35 minutes Coding Level of Care Code Acute Code for [facility] Fwd Diagnoses Acute kidney injury N17.9 Bilateral hydronephrosis N13.30 Prostate cancer C61 Chronic lymphocytic leukemia C91.10 Diabetes E11.9
[2022-08-28 17:03] LABS: Glucose Point of Care 364 mg/dL (70-110)
[2022-08-28 20:00] VITALS: BP 142/67; PULSE 77; RESP 16; TEMP 37.1; O2SAT 97
[2022-08-28 20:16] LABS: Glucose Point of Care 362 mg/dL (70-110)
[2022-08-29] VITALS (7 sets, daily range): BP systolic 123–161; BP diastolic 61–77; PULSE 72–89; RESP 16–17; TEMP 36.4–36.7; O2SAT 93–96
[2022-08-29] MEDS: sodium chloride 0.9% 1,000 ML 100 ML IV ×3 (01:11→21:55)
[2022-08-29 04:49] LABS: Hematocrit 30.5 % (42.0-52.0); Hemoglobin 9.6 g/dL (11.7-16.6); Mean Corpuscular HGB Conc 31.5 g/dL (30.0-36.0); Mean Corpuscular Hemoglobin 29.8 pg (28.0-34.0); Mean Corpuscular Volume 94.7 fl (80-94); Mean Platelet Volume 11.7 fL (7.4-10.4); Red Blood Count 3.22 10^6/uL (4.1-5.3); Red Cell Distribution Width 16.2 % (12.1-15.1); White Blood Count 15.4 10^3/uL (4.0-10.0)
[2022-08-29 05:33] LABS: Alanine Aminotransferase 10 U/L (0-41); Alkaline Phosphatase 324 U/L (40-130); Anion Gap 14.6 (5-19); Aspartate Amino Transferase 14 U/L (0-40); Blood Urea Nitrogen 70 mg/dL (8-23); Calcium 7.7 mg/dL (8.5-10.5); Carbon Dioxide 17 mmol/L (22-29); Chloride 109 mmol/L (98-107); Globulin 2.3 g/dL (1.3-4.6); Glucose 234 mg/dL (65-115); Osmolality Calculated 310 mOsm/kg (285-295); Potassium 4.6 mmol/L (3.5-5.1); Sodium 136 mmol/L (136-145); Total Bilirubin 0.3 mg/dL (0.15-1.2); Total Protein 5.3 g/dL (6.6-8.7)
[2022-08-29 05:34] LABS: Platelet Count 27 10^3/cmm (130-400); Slide Review Slide Review Perform
[2022-08-29 05:35] LABS: Absolute Neutrophil 5.5 10^3/cmm (1.4-6.5); Absolute Segmented Neutrophil 4.9 10/cmm (1.6-7.1); Band Neutrophils Absolute 0.6 10^3/cmm (0.0-1.2); Blastocytes 1 % (0-0); Eosinophils 0 %; Lymphocytes 52 %; Monocytes Absolute 1.4 10^3/cmm (0.1-0.6); Platelet Estimate Decreased (Normal); Segmented Neutrophils 32 %; Total Cells Counted 100 (0-100)
[2022-08-29] MEDS: morphine ER (12 HR) 15 mg Tablet PO ×2 (06:12→17:31)
[2022-08-29 06:30] LABS: Glucose Point of Care 252 mg/dL (70-110)
[2022-08-29] MEDS: insulin lispro 100 unit/1 mL SUBCUT ×4 (08:57→21:54)
[2022-08-29] MEDS: dexamethasone 4 mg Tablet 2 MG PO ×2 (08:58→17:30)
[2022-08-29] MEDS: finasteride 5 mg Tablet PO (08:58)
[2022-08-29] MEDS: sodium bicarbonate 650 mg Tablet PO ×2 (08:59→17:30)
[2022-08-29] MEDS: tamsulosin 0.4 mg Capsule PO ×2 (08:59→17:31)
--- NOTE | 2022-08-29 10:17 | PM.CONSULT ---
Providers/Reason For Consult Consulting Physician/Specialty*: Dr. Chato Calles DO/General surgery Reason for Consult*: Sacral decubitus ulcer Attending Physician: Jabier Servin DO Primary Care Provider: Janett Phelps MD History of Present Illness History of Present Illness Dev Laura is a 87 year old male who was directly admitted from oncology for acute kidney injury. He has been having failure to thrive recently and was diagnosed with prostate cancer and CLL. While in the hospital he was found to have a sacral decubitus ulcer. General surgery was consulted for this. Patient reports sharp constant pain on his tailbone. Palpation makes pain worse. Laying on his side makes the pain better. The pain does not radiate. Review of Systems General: Reports: 10 or more systems reviewed and unremarkable except in HPI and below Medications/Allergies Home Medications Medication Instructions Recorded Confirmed Last Taken Type lovastatin 20 mg tablet 20 mg PO DAILY 10/04/19 08/25/22 08/19/22 History ascorbic acid (vitamin C) 1,000 mg 1 g PO BID 04/08/21 08/25/22 08/19/22 History tablet hydrocodone 10 mg-acetaminophen 1 tab PO Q6H PRN pain 30 days #120 08/17/22 08/25/22 08/19/22 Rx 325 mg tablet tabs morphine 15 mg tablet,extended 15 mg PO Q12H 30 days #60 tabs 08/17/22 08/25/22 08/20/22 Rx release sennosides 8.6 mg-docusate sodium 2 tab-cap PO BID PRN constipation 08/17/22 08/25/22 08/19/22 Rx 50 mg capsule (Senna Plus) #120 caps bicalutamide 50 mg tablet 50 mg PO DAILY #30 tabs 08/20/22 08/25/22 Unknown Rx finasteride 5 mg tablet 5 mg PO DAILY 08/20/22 08/25/22 08/19/22 History tamsulosin 0.4 mg capsule 0.4 mg PO BID 08/20/22 08/25/22 08/19/22 History lorazepam 1 mg tablet 0.5 - 1 mg PO Q6H PRN Severe 08/24/22 08/25/22 Unknown Rx Nausea #30 tabs prochlorperazine maleate 10 mg 10 mg PO Q4H PRN Mild Nausea #30 08/24/22 08/25/22 Unknown Rx tablet (Compazine) tabs methenamine hippurate 1 gram tablet 1 g PO BID 08/25/22 08/25/22 Unknown History Allergies Allergy/AdvReac Type Severity Reaction Status Date / Time No Known Allergies Allergy Verified 08/24/22 10:37 Current Medications Generic Name Dose Route Start Last Admin Trade Name Carlq PRN Reason Stop Dose Admin Bicalutamide 50 mg 08/26/22 08:00 08/29/22 08:58 Bicalutamide 50 Mg Tablet PO 50 mg DAILY@0800 ALFRED Administration Dexamethasone 2 mg 08/27/22 18:00 08/29/22 08:58 Dexamethasone 4 Mg Tablet PO 2 mg BID ALFRED Administration Finasteride 5 mg 08/26/22 09:00 08/29/22 08:58 Finasteride 5 Mg Tablet PO 5 mg DAILY ALFRED Administration Sodium Chloride 1,000 mls @ 100 mls/hr 08/25/22 16:45 08/29/22 01:11 Sodium Chloride 0.9% IV 100 mls/hr .Q10H ALFRED Administration Ceftriaxone Sodium 1,000 mg/ 50 mls @ 100 mls/hr 08/26/22 14:00 08/28/22 16:03 Sodium Chloride IV Infused Q24H ALFRED Infusion Protocol Insulin Human Lispro 0 unit 08/25/22 18:00 08/29/22 08:57 Insulin Lispro 100 Unit/1 Ml SUBCUT 4 unit WM&BEDTIME ALFRED Administration Protocol Morphine Sulfate 15 mg 08/25/22 17:30 08/29/22 06:12 Morphine Er (12 Hr) 15 Mg Tablet PO 15 mg Q12H ALFRED Administration Polyethylene Glycol 17 gm 08/26/22 11:58 08/29/22 08:57 Polyethylene Glycol 3350 Pkt 17 Gm PO 17 gm BID ALFRED Administration Sodium Bicarbonate 650 mg 08/26/22 09:00 08/29/22 08:59 Sodium Bicarbonate 650 Mg Tablet PO 650 mg BID ALFRED Administration Tamsulosin HCl 0.4 mg 08/25/22 18:00 08/29/22 08:59 Tamsulosin 0.4 Mg Capsule PO 0.4 mg BID ALFRED Administration PFSH Acute PFSH: Medical History Bilateral hydronephrosis BPH with urinary obstruction Chronic kidney disease Chronic lymphocytic leukemia Diabetes Elevated PSA History of bladder stone CYSTOLITHOLAPAXY,LASER LITHOTRIPSY HTN (hypertension) Hyperlipidemia Nocturnal enuresis Prostate cancer Recurrent UTI Urinary retention Urolithiasis Surgical History History of lithotripsy History of right cataract extraction Family History Father , AT AGE 64 Myocardial infarction Brother Myocardial infarction H/O CABG in 80's Brother CAD (coronary artery disease) Mother , AT AGE 85 CAD (coronary artery disease) Sister CAD (coronary artery disease) Other Diabetes Heart failure Social History Quit status (tobacco): has quit using tobacco Year quit tobacco: 1979 Alcohol intake: former Adopted: No Caregiver/support person: No Lives independently: No Marital status: / Current occupational status: retired History of recent travel: No Current gender identity: Male Vitals/I&O/Wt Last Vital Signs Temp 98.0 F 08/29/22 08:00 Pulse 72 08/29/22 08:00 Resp 17 08/29/22 08:00 BP 123/62 08/29/22 08:00 Pulse Ox 96 08/29/22 08:00 O2 Del Method 08/29/22 08:00 08/28/22 08/29/22 08/29/22 22:59 06:59 14:59 Intake Total 530 / 2250 858.333 / 3108.333 240 / 240 Output Total 600 / 1600 700 / 2300 Balance -70 / 650 158.333 / 808.333 240 / 240 Weight last 48 hrs Weight 220 lb Physical Exam Narrative: General : Patient is well developed , no acute distress, oriented x3 Head : Normal cephalic, a-traumatic. Ears : Pinnae and external canal are normal. Hearing is normal. Eyes : PERRLA, Sclera and injection are normal. No conjunctival discharge. Nose : Mucous membranes are without erythema. Throat : buccal mucosa is normal, gums are without significant recession or hypertrophy. Lungs : Equal chest rise bilaterally, no use of accessory muscles, trachea is midline. Cor : Rate and rhythm are normal. Abdomen : Soft, ND, NT, no g/r/m Skin: There is a stage II sacral decubitus ulcer. No eschar or purulence noted Extremities : No edema, no cyanosis or clubbing, dorsalis pedis pulses are present bilaterally, non-tender to palpation of calves. Upper extremities are normal bilaterally. Back : non-tender to palpation, no CVA tenderness. Neuro : CN II - XII intact, Upper and lower extremities have equal and full strength Urinary Catheter Management: Pacheco: Cath Placed During This Visit: yes, but has since been removed by the nurse Reason for Continuing Indwelling Catheter: Acute Urinary Retention or Obstruction Date Urinary Catheter Removed: 08/28/22 Time Urinary Catheter Discontinued: 18:05 Data 08/29/22 04:36 08/29/22 04:36 A&P Assessment and plan (1) Sacral decubitus ulcer, stage II: Plan Antibiotics Encourage good nutrition Wound care with daily Medihoney and Alleyn Medical management per hospitalist Coding Level of Care Code Acute Code for [facility] Fwd Diagnoses Sacral decubitus ulcer, stage II L89.152
[2022-08-29 12:11] LABS: Glucose Point of Care 247 mg/dL (70-110)
[2022-08-29] MEDS: cefTRIAXone 1,000 MG in sodium chloride 0.9% (plus) 50 ML 100 MG IV (13:37)
--- NOTE | 2022-08-29 16:59 | P.PN_ITS ---
Subjective Subjective: Family present in room, reports that he has had worsening of his sacral debcubitus ulcer. Patient was placed on his side at time of evaluation. Family says that he he was turned a few times during the night, but did not believe that his dressing was not [facility] yesterday [facility] Patient denies any pain at this time. He does c/o pain in his low back when he is turned side to side. Vitals/I&O/Wt Last Vital Signs Temp 97.6 F 08/29/22 16:00 Pulse 77 08/29/22 16:00 Resp 16 08/29/22 16:00 BP 134/61 08/29/22 16:00 Pulse Ox 95 08/29/22 16:00 O2 Del Method 08/29/22 16:00 08/29/22 08/29/22 08/29/22 06:59 14:59 22:59 Intake Total 858.333 / 3108.333 2720 / 2720 50 / 2770 Output Total 700 / 2300 650 / 650 Balance 158.333 / 318.095 2018 / 2720 -600 / 2120 Weight last 48 hrs Weight 220 lb Physical Exam Narrative: General: Cooperative patient in no apparent distress. Well developed. HEENT: Normocephalic, Atraumatic. External ears normal. Nasal passages patent without drainage. MMM. Heart: Regular rate and rhythm. Resp: Lungs clear to auscultation no respiratory distress, no use of accessory muscles. Abd: Soft, nontender non-distended. Extremities: No edema. Skin: Sacral decubitus ulcer present, violaceous, macerated tissue. No si gnificant odor is present. Urinary Catheter Management: Pacheco: Cath Placed During This Visit: yes, but has since been removed by the nurse Reason for Continuing Indwelling Catheter: Acute Urinary Retention or Obstruction Date Urinary Catheter Removed: 08/28/22 Time Urinary Catheter Discontinued: 18:05 Data 08/29/22 04:36 08/29/22 04:36 Micro: Microbiology 08/27/22 17:30 Urine Culture - Final Urine Catheterized A&P Assessment and plan (1) Acute kidney injury: (2) Bilateral hydronephrosis: (3) Prostate cancer: (4) Chronic lymphocytic leukemia: (5) Diabetes: Plan 87-year-old male who was admitted for acute kidney injury, bilateral hydronephrosis, and currently undergoing treatment for prostate CA and CLL. - Continue close inpatient monitoring. - Sacral decubitus appears worsening today. General Surgery consulted. - Continue q2 hour turning schedule and pressure relief positioning. - Order for nursing/wound care for dressing changes. Will send referral to Wound care to evaluate upon discharge. - Would avoid debridement at the bedside given the severity of his thrombocytopenia. - Plan to discharge home with Urinary catheter. - Continue Rocephin. Surgery started on Bactrim, will need to follow his renal function closely. - Potassium remains normal. Recheck am labs. - Pain medication as needed. - Thrombocytopenia with platelet count at 27k today, down from 28. - Oncology has recommended that he continue with dexamethasone 4 mg twice daily for his prostate cancer. - Continue Casodex. - Continue sliding scale insulin and carb consistent diet. CODE STATUS: Full code DVT PPx: SCDs GI PPx: None IVF: None Diet: CHO consistent. Discharge: SNF vs. Recommend that Home Health evaluate patient upon discharge. He will need setup with Wound Care as soon as possible to address his Sacral ulcer. Attestations Medical Necessity Statement*: Needs continued hospital stay for close monitoring of renal function, potassium, transfusion Time Spent in Patient Care: 16 - 35 minutes Coding Level of Care Code Acute Code for [facility] Fwd Diagnoses Acute kidney injury N17.9 Bilateral hydronephrosis N13.30 Prostate cancer C61 Chronic lymphocytic leukemia C91.10 Diabetes E11.9
[2022-08-29 17:19] LABS: Glucose Point of Care 350 mg/dL (70-110)
[2022-08-29] MEDS: sulfamethoxazole-trimeth DS 160-800 mg Tablet 1 TAB PO (17:30)
[2022-08-29 20:30] LABS: Glucose Point of Care 437 mg/dL (70-110)
[2022-08-30 04:00] VITALS: BP 164/71; PULSE 85; RESP 17; TEMP 36.7; O2SAT 94
[2022-08-30 05:28] LABS: Hematocrit 32.4 % (42.0-52.0); Hemoglobin 9.9 g/dL (11.7-16.6); Mean Corpuscular HGB Conc 30.6 g/dL (30.0-36.0); Mean Corpuscular Hemoglobin 29.1 pg (28.0-34.0); Mean Corpuscular Volume 95.3 fl (80-94); Mean Platelet Volume 11.3 fL (7.4-10.4); Red Cell Distribution Width 16.2 % (12.1-15.1); White Blood Count 15.4 10^3/uL (4.0-10.0)
[2022-08-30 05:42] LABS: Anion Gap 13.4 (5-19); Blood Urea Nitrogen 60 mg/dL (8-23); Calcium 7.9 mg/dL (8.5-10.5); Carbon Dioxide 19 mmol/L (22-29); Chloride 106 mmol/L (98-107); Glucose 271 mg/dL (65-115); Osmolality Calculated 304 mOsm/kg (285-295); Potassium 4.4 mmol/L (3.5-5.1); Sodium 134 mmol/L (136-145)
[2022-08-30 05:54] LABS: Platelet Count 26 10^3/cmm (130-400)
[2022-08-30] MEDS: morphine ER (12 HR) 15 mg Tablet PO ×2 (06:02→18:45)
[2022-08-30 06:45] LABS: Glucose Point of Care 244 mg/dL (70-110)
[2022-08-30] MEDS: finasteride 5 mg Tablet PO (07:40)
[2022-08-30] MEDS: dexamethasone 4 mg Tablet 2 MG PO ×2 (07:40→18:46)
[2022-08-30] MEDS: sulfamethoxazole-trimeth DS 160-800 mg Tablet 1 TAB PO ×2 (07:41→18:46)
[2022-08-30] MEDS: sodium bicarbonate 650 mg Tablet PO ×2 (07:41→18:46)
[2022-08-30] MEDS: sodium chloride 0.9% 1,000 ML 100 ML IV ×2 (07:42→18:47)
[2022-08-30] MEDS: tamsulosin 0.4 mg Capsule PO ×2 (07:42→18:46)
[2022-08-30] MEDS: insulin lispro 100 unit/1 mL SUBCUT ×4 (07:46→21:39)
[2022-08-30] MEDS: polyethylene glycol 3350 Pkt 17 gm PO ×2 (08:00→18:46)
[2022-08-30 08:21] VITALS: BP 163/71; PULSE 88; RESP 16; TEMP 36.7; O2SAT 97
--- NOTE | 2022-08-30 11:01 | PC.SOCIAL ---
IMM Updated Updated pt & family on IMM. No questions voiced. Provided pt a copy. Initialed, dated, & timed copy in chart.
[2022-08-30] MEDS: HYDROcodone-acetaminophen 10-325 mg Tablet 1 TAB PO (11:13)
[2022-08-30 11:26] LABS: Glucose Point of Care 328 mg/dL (70-110)
[2022-08-30 12:00] VITALS: BP 121/64; PULSE 79; RESP 18; TEMP 37.1; O2SAT 94
--- NOTE | 2022-08-30 12:26 | XR_ITS ---
WS: [id number] Portable AP upright chest, 08/30/2022 Clinical Data: R side chest pain Comparison: None. Findings: No nodules, masses or effusions are seen. The heart is slightly enlarged. The pulmonary vas cularity is not increased. No pneumonia or pneumothorax is seen. The aortic arch and descending thora cic aorta show calcification and tortuosity. The diaphragms are flattened. There is osteoarthritis of the right shoulder joint. XR/XR chest 1V portable [id number] Impression: 1. Atherosclerosis and cardiomegaly. 2. Hyperinflation.
[2022-08-30] MEDS: cefTRIAXone 1,000 MG in sodium chloride 0.9% (plus) 50 ML 100 MG IV (12:34)
[2022-08-30 16:00] VITALS: BP 162/78; PULSE 90; RESP 17; TEMP 36.6; O2SAT 95
[2022-08-30 17:12] LABS: Glucose Point of Care 398 mg/dL (70-110)
[2022-08-30 19:24] VITALS: BP 156/69; PULSE 82; RESP 15; TEMP 36.6; O2SAT 97
--- NOTE | 2022-08-30 20:39 | PM.PN ---
Subjective Subjective: Patient seen and examined. Still reports pain at his sacrum Vitals/I&O/Wt Last Vital Signs Temp 97.8 F 08/30/22 19:24 Pulse 82 08/30/22 19:24 Resp 15 08/30/22 19:24 BP 156/69 08/30/22 19:24 Pulse Ox 97 08/30/22 19:24 O2 Del Method 08/30/22 19:24 08/30/22 08/30/22 08/30/22 06:59 14:59 22:59 Intake Total 1268.333 / 9073.230 3159 / 2268.333 Output Total 1300 / 3450 750 / 750 Balance -1300 / -80 518.333 / 706.243 5763 / 1518.333 Weight last 48 hrs Weight 220 lb Physical Exam Narrative: General: No acute distress. Awake alert and oriented x3 Skin: Stage II sacral decubitus ulcer mostly unchanged from yesterday Urinary Catheter Management: Pacheco: Cath Placed During This Visit: yes, but has since been removed by the nurse Reason for Continuing Indwelling Catheter: Accurate Measurement of Urinary Output in Critically Ill Patients Date Urinary Catheter Removed: 08/28/22 Time Urinary Catheter Discontinued: 18:05 Data 08/30/22 04:33 08/30/22 04:33 A&P Assessment and plan (1) Sacral decubitus ulcer, stage II: Plan Change dressings with Medihoney and Allevyn twice daily Will follow Attestations Medical Necessity Statement*: Further hospitalization per hospital Coding Level of Care Code Acute Code for [facility] Diagnoses Sacral decubitus ulcer, stage II L89.152
[2022-08-30 20:54] LABS: Glucose Point of Care 445 mg/dL (70-110)
--- NOTE | 2022-08-30 21:14 | P.PN_ITS ---
Subjective Subjective: He has been having some pain in posterior right chest wall worse with inspiration. He is not short of breath. Denies chest pain. With him and family regarding improving renal function. Discussed regarding need for maintenance of Pacheco catheter after discharge. Medications: Reviewed: Yes Vitals/I&O/Wt Last Vital Signs Temp 97.8 F 08/30/22 19:24 Pulse 82 08/30/22 19:24 Resp 15 08/30/22 19:24 BP 156/69 08/30/22 19:24 Pulse Ox 97 08/30/22 19:24 O2 Del Method 08/30/22 19:24 08/30/22 08/30/22 08/30/22 06:59 14:59 22:59 Intake Total 1268.333 / 7442.326 2134 / 2268.333 Output Total 1300 / 3450 750 / 750 Balance -1300 / -80 518.333 / 727.547 2768 / 1518.333 Weight last 48 hrs Weight 99.79 kg Physical Exam Narrative: Accompanied by son and [id number]. Const: COMMON NORMALS: patient oriented x3 and alert GENERAL APPEARANCE: cooperative ORIENTATION/CONSCIOUSNESS: Yes awake HENMT: COMMON NORMALS: oropharynx normal Neck/C-Spine: COMMON NORMALS: no JVD Resp: COMMON NORMALS: normal respiratory effort and clear to auscultation bi laterally AUSCULTATION: clear to auscultation bilaterally Cardio: COMMON NORMALS: no JVD, regular rhythm, S1 normal heart sound present, S2 normal heart sound present and No murmurs present (Cardio) RHYTHM: regular rhythm HEART SOUNDS: S1 normal heart sound present and S2 normal heart sound present GI: COMMON NORMALS: Normal to inspection, nondistended, normoactive bowel sounds present, Soft to palpation and non-tender PALPATION: Yes Soft to palpation Extremity: COMMON NORMALS: no joint enlargement and no pedal edema Neuro: COMMON NORMALS: patient oriented x3 and moves all extremities SENSORIUM/ORIENTATION: Yes alert Psych: OTHER: Pressure ulcer of sacrum and superior gluteal fold. With maceration, small amount of superficial slough. No significant surrounding swelling or erythema. No active drainage or bleeding. Urinary Catheter Management: Pacheco: Cath Placed During This Visit: yes, but has since been removed by the nurse Reason for Continuing Indwelling Catheter: Accurate Measurement of Urinary Output in Critically Ill Patients Date Urinary Catheter Removed: 08/28/22 Time Urinary Catheter Discontinued: 18:05 Data 08/30/22 04:33 08/30/22 04:33 A&P Assessment and plan (1) Acute kidney injury: Gradually improving. Maintain Pacheco catheter. Increase finasteride dose to 7.5. Follow-up with urology. He is overall doing better. Continue to work with therapy. Plan is likely to return home tomorrow. Home health requested. His family requested discharge in the morning, preparing home for his arrival. (2) Bilateral hydronephrosis: As above. (3) Prostate cancer: (4) Chronic lymphocytic leukemia: (5) Diabetes: Plan 87-year-old male who was admitted for acute kidney injury, bilateral hy dronephrosis, and currently undergoing treatment for prostate CA and CLL. Posterior right chest pain: Appears to be chest wall pain, chest x-ray with emphysema, atherosclerosis, otherwise nonacute. Worse with inspiration, triggered on palpation. May be secondary to prolonged immobilization in bed. Discussed with him to reposition frequently. Local measures with capsaicin/IcyHot. Gentle massage. Reassess. Stage II decub ulcer: Surgery evaluation appreciated. Continue wound care. Follow-up with wound care. Currently is empirically on ceftriaxone and Bactrim. Reassess renal function, potassium. Thrombocytopenia: Continue dexamethasone, add PPI. Follow-up with heme-onc Continue Casodex. Follow-up with heme-onc. Attestations 2 Medical Necessity Statement*: Continue admission for assessment of management of NOAH with bilateral hydronephrosis, assessment of right-sided chest pain, post discharge planning. Coding Level of Care Code Acute Code for [facility] Diagnoses Acute kidney injury N17.9 Bilateral hydronephrosis N13.30 Prostate cancer C61 Chronic lymphocytic leukemia C91.10 Diabetes E11.9
[2022-08-30] MEDS: pantoprazole DR 40 mg Tablet PO (21:39)
[2022-08-31] VITALS: BP 161/67; PULSE 87; RESP 15; TEMP 36.5; O2SAT 94
[2022-08-31 04:00] VITALS: BP 151/57; PULSE 86; RESP 16; TEMP 36.7; O2SAT 97
[2022-08-31] MEDS: sodium chloride 0.9% 1,000 ML 100 ML IV (04:50)
[2022-08-31] MEDS: morphine ER (12 HR) 15 mg Tablet PO (04:50)
[2022-08-31 06:17] LABS: Blood Urea Nitrogen 58 mg/dL (8-23); Calcium 7.6 mg/dL (8.5-10.5); Carbon Dioxide 17 mmol/L (22-29); Chloride 106 mmol/L (98-107); Glucose 286 mg/dL (65-115); Osmolality Calculated 307 mOsm/kg (285-295); Sodium 135 mmol/L (136-145)
[2022-08-31 06:22] LABS: Anion Gap 17.5 (5-19); Potassium 5.5 mmol/L (3.5-5.1)
[2022-08-31 06:42] LABS: Glucose Point of Care 299 mg/dL (70-110)
[2022-08-31 08:00] VITALS: BP 150/68; PULSE 84; RESP 18; TEMP 36.8; O2SAT 96
[2022-08-31] MEDS: finasteride 5 mg Tablet 7.5 MG PO (09:50)
[2022-08-31] MEDS: dexamethasone 4 mg Tablet 2 MG PO (09:51)
[2022-08-31] MEDS: sulfamethoxazole-trimeth DS 160-800 mg Tablet 1 TAB PO (09:51)
[2022-08-31] MEDS: sodium bicarbonate 650 mg Tablet PO (09:51)
[2022-08-31] MEDS: polyethylene glycol 3350 Pkt 17 gm PO (09:51)
[2022-08-31] MEDS: tamsulosin 0.4 mg Capsule PO (09:51)
[2022-08-31] MEDS: insulin lispro 100 unit/1 mL SUBCUT ×2 (09:52→11:57)
[2022-08-31 11:51] LABS: Glucose Point of Care 299 mg/dL (70-110)
--- NOTE | 2022-08-31 19:45 | P.DS_ITS ---
Discharge Providers Date of Admission: 08/25/22 16:08 Date of Discharge: August 31, 2022 Attending Provider at Admission: Daryl Phelps MD Attending Provider at Discharge: Triston Renteria Primary Care Provider: Janett Phelps MD Diagnoses at Discharge Discharge Diagnosis (1) Acute kidney injury: Status: Acute (2) Bilateral hydronephrosis: Status: Acute (3) Prostate cancer: Status: Acute (4) Chronic lymphocytic leukemia: Status: Acute (5) Diabetes: Status: Acute Reason for Visit Reason for Visit: Acute kindney injury, prostate cancer, dehydration Hospital Course Hospital Course Pleasant 87-year-old gentleman with history of metastatic prostate carcinoma, CLL, was admitted directly from oncology clinic with acute kidney injury. Recently with poor oral intake and appetite. Has been having issues urinating. Pacheco catheter was placed in oncology clinic with residual 500 cc. Kidney ultrasound showed bilateral moderate hydronephrosis with bladder wall thickening. Also with severe thrombocytopenia platelets of 23,000. He received IV fluid hydration. Pacheco catheter maintained and continues with Pacheco at discharge. Finasteride dose increased to 7.5 mg. Continues on Flomax. Continues on Casodex. Dexamethasone was started at 4 mg twice daily with recommendation from oncology. Received Kayexalate for hyperkalemia. Also improved. Treated with Rocephin for possible UTI although urine culture eventually came back without any growth. Was by surgery due to stage II sacral/gluteal cleft pressure ulcer with recommendation for continued wound care with Medihoney and Allevyn twice daily. He is overall doing better. His renal function has continued to improve and creatinine has decreased from 2.9 down to 1.7. He has been getting up to ambulate. Appetite is still poor. At discharge after discussion he is started on dronabinol. Continues on dexamethasone. Protonix while he is on steroid. Will complete antibiotic course with cefdinir and doxycycline. Continue wound care and follow-up with wound care clinic. Follow-up with heme-onc and urology discharging with Tara. Physical Exam Const: COMMON NORMALS: patient oriented x3 and alert GENERAL APPEARANCE: cooperative ORIENTATION/CONSCIOUSNESS: Yes awake OTHER: Awake, alert, pleasant, not in discomfort. Feels ready to return home. HENMT: COMMON NORMALS: oropharynx normal Neck/C-Spine: COMMON NORMALS: no JVD Resp: COMMON NORMALS: normal respiratory effort and clear to auscultation bilaterally AUSCULTATION: clear to auscultation bilaterally Cardio: COMMON NORMALS: no JVD, regular rhythm, S1 normal heart sound present, S2 normal heart sound present and No murmurs present (Cardio) RHYTHM: regular rhythm HEART SOUNDS: S1 normal heart sound present and S2 normal heart sound present GI: COMMON NORMALS: Normal to inspection, nondistended, normoactive bowel sounds present, Soft to palpation and non-tender PALPATION: Yes Soft to palpation Extremity: COMMON NORMALS: no joint enlargement and no pedal edema Neuro: COMMON NORMALS: patient oriented x3 and moves all extremities SENSORIUM/ORIENTATION: Yes alert Psych: OTHER: Pressure ulcer of sacrum and superior gluteal fold. With maceration, small amount of superficial slough. No significant surrounding swelling or erythema. No active drainage or bleeding. Urinary Catheter Management: Pacheco: Cath Placed During This Visit: yes, but has since been removed by the nurse Reason for Continuing Indwelling Catheter: Accurate Measurement of Urinary Output in Critically Ill Patients Date Urinary Catheter Removed: 08/28/22 Time Urinary Catheter Discontinued: 18:05 Discharge Data Studies Completed and Pending Completed Studies During Hospitalization Category Date Time Status CXRP [XR chest 1V portable [id number]] Routine Exams 08/30/22 12:26 Completed Radiology Impressions Chest X-Ray 08/30/22 12:26 Impression: 1. Atherosclerosis and cardiomegaly. 2. Hyperinflation. Laboratory Results WBC 15.4 10^3/uL (4.0-10.0) H 08/30/22 04:33 RBC 3.40 10^6/uL (4.1-5.3) L 08/30/22 04:33 Hgb 9.9 g/dL (11.7-16.6) L 08/30/22 04:33 Hct 32.4 % (42.0-52.0) L 08/30/22 04:33 MCV 95.3 fl (80-94) H 08/30/22 04:33 MCH 29.1 pg (28.0-34.0) 08/30/22 04:33 MCHC 30.6 g/dL (30.0-36.0) 08/30/22 04:33 RDW 16.2 % (12.1-15.1) H 08/30/22 04:33 Plt Count 26 10^3/cmm (130-400) L* 08/30/22 04:33 MPV 11.3 fL (7.4-10.4) H 08/30/22 04:33 Neut % (Auto) 35.0 % 08/28/22 04:12 Lymph % (Auto) Not Reportable 08/29/22 04:36 [place] % (Auto) Not Reportable 08/29/22 04:36 Eos % (Auto) 0.4 % 08/28/22 04:12 Baso % (Auto) 0.4 % 08/28/22 04:12 Neut # (Auto) 4.94 10^3/uL (1.8-7.7) 08/28/22 04:12 Lymph # (Auto) Not Reportable 08/29/22 04:36 [place] # (Auto) Not Reportable 08/29/22 04:36 Eos # (Auto) 0.1 10^3/uL (0.0-0.8) 08/28/22 04:12 Baso # (Auto) 0.1 10^3/uL (0.0-0.1) 08/28/22 04:12 Nucleated RBC % (auto) 1.5 % 08/28/22 04:12 Total Counted 100 (0-100) 08/29/22 04:36 Atypical Lymphs % 0.0 % (0-5) 08/29/22 04:36 Absolute Neutrophils 5.5 10^3/cmm (1.4-6.5) 08/29/22 04:36 Segmented Neutrophils 32 % 08/29/22 04:36 Abs Segm Neuts (Man) 4.9 10/cmm (1.6-7.1) 08/29/22 04:36 Band Neutrophils 4.0 % 08/29/22 04:36 Abs Band Neuts (Man) 0.6 10^3/cmm (0.0-1.2) 08/29/22 04:36 Absolute Lymphocytes 8.0 10^3/cmm (1.2-3.4) H 08/29/22 04:36 Lymphocytes (Manual) 52 % 08/29/22 04:36 Monocytes (Manual) 9.0 % 08/29/22 04:36 Absolute Monocytes 1.4 10^3/cmm (0.1-0.6) H 08/29/22 04:36 Eosinophils (Manual) 0 % 08/29/22 04:36 Absolute Eosinophils 0.0 10^3/cmm (0.0-0.7) 08/29/22 04:36 Basophils (Manual) 0.0 % 08/29/22 04:36 Absolute Basophils 0.0 10^3/cmm (0.0-0.2) 08/29/22 04:36 Metamyelocytes 1.0 % 08/29/22 04:36 Myelocytes 1.0 % 08/29/22 04:36 Nucleated RBCs # 0.2 /100WBC 08/28/22 04:12 Blast Cells 1 % (0-0) H 08/29/22 04:36 Platelet Estimate Decreased (Normal) 08/29/22 04:36 Haptoglobin 391.0 mg/L (30-200) H 08/26/22 05:01 Sodium 135 mmol/L (136-145) L 08/31/22 05:03 Potassium 5.5 mmol/L (3.5-5.1) H 08/31/22 05:03 Chloride 106 mmol/L (98-107) 08/31/22 05:03 Carbon Dioxide 17 mmol/L (22-29) L 08/31/22 05:03 Anion Gap 17.5 (5-19) 08/31/22 05:03 BUN 58 mg/dL (8-23) H 08/31/22 05:03 Creatinine 1.7 mg/dL (0.7-1.2) H 08/31/22 05:03 GFR Calculation Not Reportable 08/31/22 05:03 Glucose 286 mg/dL (65-115) H 08/31/22 05:03 POC Glucose 299 mg/dL (70-110) H 08/31/22 11:32 Calculated Osmolality 307 mOsm/kg (285-295) H 08/31/22 05:03 Calcium 7.6 mg/dL (8.5-10.5) L 08/31/22 05:03 Magnesium 2.2 mg/dL (1.7-2.3) 08/27/22 04:15 Total Bilirubin 0.3 mg/dL (0.15-1.2) 08/29/22 04:36 AST 14 U/L (0-40) 08/29/22 04:36 ALT 10 U/L (0-41) 08/29/22 04:36 Alkaline Phosphatase 324 U/L (40-130) H 08/29/22 04:36 Creatine Kinase 33 U/L (39-308) L 08/26/22 05:01 C-Reactive Protein 10.0 mg/L (0.0-4.9) H 08/29/22 04:36 Total Protein 5.3 g/dL (6.6-8.7) L 08/29/22 04:36 Albumin 3.0 g/dL (3.5-5.2) L 08/29/22 04:36 Globulin 2.3 g/dL (1.3-4.6) 08/29/22 04:36 TSH 0.90 uIU/mL (0.27-4.20) 08/26/22 05:01 Urine Color Yellow (Yellow) 08/25/22 12:00 Urine Appearance Cloudy (CLEAR) A 08/25/22 12:00 Urine pH 5 (5-7) 08/25/22 12:00 Ur Specific [place] 1.015 (1.005-1.030) 08/25/22 12:00 Urine Protein 2+ (Negative) H 08/25/22 12:00 Urine Glucose (UA) Norm (Normal) 08/25/22 12:00 Urine Ketones 1+ (Negative) H 08/25/22 12:00 Urine Blood 3+ (Negative) H 08/25/22 12:00 Urine Nitrate Negative (Negative) 08/25/22 12:00 Urine Bilirubin Neg (Negative) 08/25/22 12:00 Urine Urobilinogen Neg mg/dL (Negative) 08/25/22 12:00 Ur Leukocyte Esterase Trace (Negative) H 08/25/22 12:00 Urine RBC 15-25 /hpf (0-2) H 08/25/22 12:00 Urine WBC 5-10 /hpf (0-5) H 08/25/22 12:00 Ur Squamous Epith Cells None /hpf (0-5) 08/25/22 12:00 Uric Acid Crystals 0-4 /hpf 08/25/22 12:00 Amorphous Sediment Not Reportable 08/25/22 12:00 Urine Bacteria None /hpf (NONE) 08/25/22 12:00 Urine Mucus 1+ /hpf 08/25/22 12:00 Blood Type O Positive 08/27/22 07:37 Rho(D) Type Positive 08/27/22 07:37 Antibody Screen Negative 08/27/22 07:37 Crossmatch See Detail 08/27/22 07:37 Vitals Last Vital Signs Temp 98.2 F 08/31/22 08:00 Pulse 84 08/31/22 08:00 Resp 18 08/31/22 08:00 BP 150/68 08/31/22 08:00 Pulse Ox 96 08/31/22 08:00 O2 Del Method 08/31/22 12:00 Discharge Plan Discharge Patient Disposition: Home Health Service Condition: Stable Prescriptions: New polyethylene glycol 3350 17 gram Powder In Packet 17 g PO BID Qty: 180 0RF dexamethasone 4 mg Tablet 2 mg PO BID Qty: 28 0RF cefdinir 300 mg capsule 300 mg PO BID 5 Days Qty: 10 0RF doxycycline hyclate 100 mg capsule 100 mg PO BID 5 Days Qty: 10 0RF pantoprazole 40 mg tablet,delayed release (DR/EC) 40 mg PO DAILY 28 Days Qty: 30 0RF dronabinol 2.5 mg capsule 2.5 mg PO BID Qty: 60 0RF Rx Instructions: administer before lunch and evening meal/dinner Continued ascorbic acid (vitamin C) 1,000 mg tablet 1 g PO BID lovastatin 20 mg tablet 20 mg PO DAILY Senna Plus 8.6-50 mg capsule 2 tab-cap PO BID PRN (Reason: constipation) Qty: 120 0RF Rx Instructions: Take 2 tablets a day. May increase to 2 tablets twice a day. morphine 15 mg tablet extended release 15 mg PO Q12H 30 Days Qty: 60 0RF hydrocodone-acetaminophen 10-325 mg tablet 1 tab PO Q6H PRN (Reason: pain) 30 Days Qty: 120 0RF bicalutamide 50 mg tablet 50 mg PO DAILY Qty: 30 0RF prochlorperazine maleate [Compazine] 10 mg tablet 10 mg PO Q4H PRN (Reason: Mild Nausea) Qty: 30 3RF lorazepam 1 mg tablet 0.5 - 1 mg PO Q6H PRN (Reason: Severe Nausea) Qty: 30 3RF methenamine hippurate 1 gram Tablet 1 g PO BID tamsulosin 0.4 mg capsule 0.4 mg PO BID Rx Instructions: Take 1 capsule by mouth twice daily Changed finasteride 5 mg tablet 7.5 mg PO DAILY Qty: 30 0RF Rx Instructions: Take 1 tablet by mouth once daily Discharge Orders: Discharge Order (Routine); Ordered 08/30/22 Ordered By: Triston Renteria Referrals: [facility] [Provider Group] - 09/08/22 12:30 pm ( ) [facility] [place] ([facility]) [Outside] Jeff Matthew MD [Hospitalist] - 1 week (Thrombocytopenia, steroid After scan at [facility] Will call patient with an appointment.) W[facility], [Staff Physician] - 09/03/22 9:30 am (09/03/2022 at 0930 ) Patient Instructions: Doxycycline (By mouth), Dronabinol (By mouth), Cefdinir (By mouth), Pacheco Catheter Care, Acute Kidney Injury (GEN), Urinary Retention in Men (GEN), Hydronephrosis (GEN), Thrombocytopenia (GEN), Anorexia in Older Adults (GEN), How to Change a Catheter Drainage Bag (GEN), Opioid Safety Activity Restrictions/Additional Instructions: Continue wound care at home daily dressing changes with Ligia and Ema Add protein shakes to meals, Ensure Plus with each meal. Try to avoid foods that are rich in potassium as her potassium was elevated on presentation. Dronabinol may help with appetite. Resume dexamethasone as well. Please follow-up with your oncologist and primary care doctor for reassessment. [facility]o gist will help taper down steroid. While on steroids you are also started for now on pantoprazole this may not need to continue beyond steroid treatment. Have your primary doctor and oncologist follow-up your bowel counts especially very low platelet level. Maintain urinary catheter until you can follow-up with urology for reassessment and due to hydronephrosis. Have your primary doctor reassess your kidney function at next visit as well. Your finasteride dose is increased to 7.5 mg. Continue frequent repositioning to relieve pressure from the sacral wound as well as pain and right side back. Apply IcyHot or [place] or capsaicin for relief, gentle massage. Discussed with your primary doctor if pain is not resolving. Discharge Attestations Time Spent in Discharge Care*: greater than 30 min Quality Metrics Clinical Quality Measures [ No reported AMI, CVA or VTE this stay] Coding Level of Care Code Acute Chg DC note Diagnoses Acute kidney injury N17.9 Bilateral hydronephrosis N13.30 Prostate cancer C61 Chronic lymphocytic leukemia C91.10 Diabetes E11.9
== END 2022-08-31 12:43 | disposition home health service (06) | DRG 683 ==
PROVIDERS: Family Medicine; Admitting Provider Internal Medicine; PCP Family Medicine; Visit Provider Internal Medicine
DX: N17.9 Acute kidney failure, unspecified (principal); C79.51 Secondary malignant neoplasm of bone; C91.10 Chronic lymphocytic leukemia of B-cell type not having achieved remission; N13.8 Other obstructive and reflux uropathy; C61 Malignant neoplasm of prostate; E86.0 Dehydration; N13.30 Unspecified hydronephrosis; D69.6 Thrombocytopenia, unspecified; L89.152 Pressure ulcer of sacral region, stage 2; Z79.891 Long term (current) use of opiate analgesic; N40.1 Benign prostatic hyperplasia with lower urinary tract symptoms; R33.8 Other retention of urine; E11.22 Type 2 diabetes mellitus with diabetic chronic kidney disease; I12.9 Hypertensive chronic kidney disease with stage 1 through stage 4 chronic kidney disease, or unspecified chronic kidney disease; N18.9 Chronic kidney disease, unspecified; E78.5 Hyperlipidemia, unspecified; Z87.442 Personal history of urinary calculi; G89.3 Neoplasm related pain (acute) (chronic); I25.10 Atherosclerotic heart disease of native coronary artery without angina pectoris; J43.9 Emphysema, unspecified; R07.89 Other chest pain; Z87.891 Personal history of nicotine dependence; Z79.52 Long term (current) use of systemic steroids; Z79.899 Other long term (current) drug therapy
CPT/HCPCS: 36415; 36416; 36430; 51702; 71045; 80048; 80053; 81001; 82550; 82962; 83010; 83735; 84443; 85007; 85025; 85027; 86140; 86850; 86900; 86920; 87086; 96365; 96372; 96402; 99215; J0696; J1815; J7030; J8540; J8999; J9217; P9040

== ENCOUNTER → 2022-09-03 09:30 | Outpatient (BNVA) | payer MEDICARE, MEDICAID, SELFPAY | PROVIDERS: PCP Family Medicine; Visit Provider Thoracic Surgery (Cardiothoracic Vascular Surgery) | DX: I96 Gangrene, not elsewhere classified (principal); L89.152 Pressure ulcer of sacral region, stage 2 | CPT/HCPCS: 97597; 97598; 99213; A6219 ==

== ENCOUNTER 2022-09-06 12:00 | Oncology outpatient (recurring) (ONCR) | payer MEDICARE, MEDICAID, SELFPAY ==
[2022-08-17 09:56] LABS: Hemoglobin 8.2 g/dL (11.7-16.6); Mean Corpuscular HGB Conc 31.5 g/dL (30.0-36.0); Mean Corpuscular Hemoglobin 29.7 pg (28.0-34.0); Mean Corpuscular Volume 94.2 fl (80-94); Mean Platelet Volume 10.3 fL (7.4-10.4); Platelet Count 45 10^3/cmm (130-400); Red Blood Count 2.76 10^6/uL (4.1-5.3); Red Cell Distribution Width 17.2 % (12.1-15.1)
[2022-08-17 10:14] LABS: Alanine Aminotransferase 13 U/L (0-41); Albumin Level 3.9 g/dL (3.5-5.2); Alkaline Phosphatase 400 U/L (40-130); Anion Gap 19.8 (5-19); Aspartate Amino Transferase 20 U/L (0-40); Calcium 8.4 mg/dL (8.5-10.5); Carbon Dioxide 18 mmol/L (22-29); Chloride 105 mmol/L (98-107); Globulin 2.7 g/dL (1.3-4.6); Glucose 103 mg/dL (65-115); Immunoglobulin IGA 120 mg/dL (70-400); Immunoglobulin IGG 412 mg/dL (700-1600); Immunoglobulin IGM 32 mg/dL (40-230); Lactate Dehydrogenase 305 U/L (135-225); Osmolality Calculated 315 mOsm/kg (285-295); Potassium 4.8 mmol/L (3.5-5.1); Sodium 138 mmol/L (136-145); Total Bilirubin 0.3 mg/dL (0.15-1.2); Total Protein 6.6 g/dL (6.6-8.7)
[2022-08-17 10:29] LABS: Absolute Segmented Neutrophil 4.9 10/cmm (1.6-7.1); Band Neutrophils Absolute 0.1 10^3/cmm (0.0-1.2); Corrected White Blood Count 13.5 10^3/cmm (4.8-10.8); Eosinophils 0 %; Lymphocytes 60 %; Lymphocytes Absolute 8.4 10^3/cmm (1.2-3.4); Platelet Estimate Decreased (Normal); Segmented Neutrophils 35 %; Total Cells Counted 100 (0-100)
[2022-08-17 10:30] LABS: Slide Review Slide Review Perform
[2022-08-17 10:32] LABS: Blood Urea Nitrogen 93 mg/dL (8-23)
[2022-08-17 10:42] LABS: LAB Peripheral Smear Sent for Review
[2022-08-18] MEDS: sodium chloride 0.9% 1,000 ML 999 ML IV (11:40)
[2022-08-18 13:20] LABS: KAPPA LIGHT CHAIN, FREE, SERUM 72.4 mg/L (3.3-19.4); KAPPA/LAMBDA LIGHT CHAINS FREE 1.85 (0.26-1.65); LAMBDA LIGHT CHAIN, FREE, SERU 39.2 mg/L (5.7-26.3)
[2022-08-18 16:00] VITALS: BP 124/78; PULSE 88; RESP 16; TEMP 36.3; O2SAT 98
[2022-08-19] VITALS (9 sets, daily range): BP systolic 112–139; BP diastolic 55–74; PULSE 70–88; RESP 16–18; TEMP 35.8–36.2; O2SAT 96–98
[2022-08-19] MEDS: sodium chloride 0.9% 1,000 ML 999 ML IV (08:21)
[2022-08-19 08:30] LABS: Hematocrit 24.4 % (42.0-52.0); Hemoglobin 7.7 g/dL (11.7-16.6); Mean Corpuscular HGB Conc 31.6 g/dL (30.0-36.0); Mean Corpuscular Hemoglobin 30.1 pg (28.0-34.0); Mean Corpuscular Volume 95.3 fl (80-94); Mean Platelet Volume 10.5 fL (7.4-10.4); Platelet Count 44 10^3/cmm (130-400); Red Blood Count 2.56 10^6/uL (4.1-5.3); Red Cell Distribution Width 17.5 % (12.1-15.1); White Blood Count 13.5 10^3/uL (4.0-10.0)
[2022-08-19 08:44] LABS: Alanine Aminotransferase 11 U/L (0-41); Albumin Level 3.8 g/dL (3.5-5.2); Alkaline Phosphatase 347 U/L (40-130); Anion Gap 20.9 (5-19); Aspartate Amino Transferase 17 U/L (0-40); Calcium 8.5 mg/dL (8.5-10.5); Carbon Dioxide 17 mmol/L (22-29); Chloride 105 mmol/L (98-107); Globulin 2.6 g/dL (1.3-4.6); Glucose 80 mg/dL (65-115); Osmolality Calculated 318 mOsm/kg (285-295); Potassium 4.9 mmol/L (3.5-5.1); Sodium 138 mmol/L (136-145); Total Bilirubin 0.2 mg/dL (0.15-1.2); Total Protein 6.4 g/dL (6.6-8.7)
[2022-08-19 08:51] LABS: Slide Review Slide Review Perform
[2022-08-19 08:52] LABS: Absolute Neutrophil 3.9 10^3/cmm (1.4-6.5); Absolute Segmented Neutrophil 3.9 10/cmm (1.6-7.1); Eosinophils 0 %; Lymphocytes 59 %; Lymphocytes Absolute 8.8 10^3/cmm (1.2-3.4); Monocytes Absolute 0.3 10^3/cmm (0.1-0.6); Platelet Estimate Decreased (Normal); Segmented Neutrophils 29 %; Total Cells Counted 100 (0-100)
[2022-08-19 08:53] LABS: Acanthocytes Trace; Anisocytosis 3+; Blood Urea Nitrogen 106 mg/dL (8-23); Hypochromasia 2+; Macrocytosis 3+; Microcytosis 3+; Ovalocytes Trace; Poikilocytosis 3+; Polychromasia 2+; Schistocytes Trace; Spherocytes 3+; Stomatocytes Trace; Target Cells Trace
[2022-08-19] MEDS: acetaminophen 325 mg Tablet 650 MG PO (12:54)
[2022-08-19] MEDS: diphenhydrAMINE 25 mg Capsule PO (12:55)
[2022-08-19] MEDS: sodium chloride 0.9% 250 mL Bag IV (12:55)
[2022-08-20] MEDS: sodium chloride 0.9% 500 ML 999 ML IV (10:05)
[2022-08-20 10:16] LABS: Basophils # 0.1 10^3/uL (0.0-0.1); Basophils % 0.7 %; Eosinophils # 0.1 10^3/uL (0.0-0.8); Eosinophils % 0.9 %; Hematocrit 31.5 % (42.0-52.0); Lymphocytes # 7.3 10^3/uL (0.8-4.8); Lymphocytes % 53.7 %; Mean Corpuscular HGB Conc 31.7 g/dL (30.0-36.0); Mean Corpuscular Hemoglobin 29.2 pg (28.0-34.0); Mean Corpuscular Volume 92.1 fl (80-94); Mean Platelet Volume 10.9 fL (7.4-10.4); Monocytes # 1.3 10^3/uL (0.2-0.9); Monocytes % 9.3 %; Neutrophils % 28.6 %; Nucleated Red Blood Cells # 0.6 /100WBC; Nucleated Red Blood Cells % 4.3 %; Platelet Count 38 10^3/cmm (130-400); Red Blood Count 3.42 10^6/uL (4.1-5.3); Red Cell Distribution Width 17.4 % (12.1-15.1); White Blood Count 13.6 10^3/uL (4.0-10.0)
[2022-08-20 10:51] LABS: Slide Review Slide Review Perform
[2022-08-20 11:09] VITALS: BP 102/74; PULSE 74; RESP 16; TEMP 36.1; O2SAT 96
[2022-08-24 10:37] LABS: Basophils # 0.1 10^3/uL (0.0-0.1); Basophils % 0.7 %; Eosinophils # 0.1 10^3/uL (0.0-0.8); Eosinophils % 0.9 %; Hematocrit 31.6 % (42.0-52.0); Hemoglobin 9.8 g/dL (11.7-16.6); Lymphocytes % 53.8 %; Mean Corpuscular Hemoglobin 29.5 pg (28.0-34.0); Mean Corpuscular Volume 95.2 fl (80-94); Mean Platelet Volume 9.8 fL (7.4-10.4); Monocytes # 1.1 10^3/uL (0.2-0.9); Monocytes % 8.8 %; Neutrophils # 3.84 10^3/uL (1.8-7.7); Neutrophils % 29.7 %; Nucleated Red Blood Cells # 0.4 /100WBC; Nucleated Red Blood Cells % 2.9 %; Platelet Count 30 10^3/cmm (130-400); Red Blood Count 3.32 10^6/uL (4.1-5.3); Red Cell Distribution Width 16.8 % (12.1-15.1); White Blood Count 12.9 10^3/uL (4.0-10.0)
[2022-08-24 10:58] LABS: Alanine Aminotransferase 11 U/L (0-41); Albumin Level 3.7 g/dL (3.5-5.2); Alkaline Phosphatase 395 U/L (40-130); Anion Gap 21.5 (5-19); Aspartate Amino Transferase 15 U/L (0-40); Calcium 9.3 mg/dL (8.5-10.5); Carbon Dioxide 14 mmol/L (22-29); Chloride 108 mmol/L (98-107); Globulin 2.6 g/dL (1.3-4.6); Glucose 282 mg/dL (65-115); Potassium 5.5 mmol/L (3.5-5.1); Sodium 138 mmol/L (136-145); Total Bilirubin 0.4 mg/dL (0.15-1.2); Total Protein 6.3 g/dL (6.6-8.7)
[2022-08-24 11:05] LABS: Blood Urea Nitrogen 127 mg/dL (8-23); Osmolality Calculated 337 mOsm/kg (285-295)
[2022-08-24] MEDS: sodium chloride 0.9% 1,000 ML 999 ML IV (11:12)
[2022-08-24 11:14] LABS: Slide Review Slide Review Perform
[2022-08-24] MEDS: leuprolide 22.5 mg Kit IM (11:30)
[2022-08-25 10:39] LABS: Anion Gap 19.1 (5-19); Calcium 8.6 mg/dL (8.5-10.5); Carbon Dioxide 15 mmol/L (22-29); Chloride 109 mmol/L (98-107); Glucose 269 mg/dL (65-115); Potassium 5.1 mmol/L (3.5-5.1); Sodium 138 mmol/L (136-145)
[2022-08-25 10:48] LABS: Blood Urea Nitrogen 147 mg/dL (8-23); Osmolality Calculated 343 mOsm/kg (285-295)
[2022-08-25 19:36] LABS: Glucose Point of Care 267 mg/dL (70-110)
[2022-08-25 21:17] LABS: Glucose Point of Care 238 mg/dL (70-110)
[2022-08-26 06:49] LABS: Glucose Point of Care 233 mg/dL (70-110)
[2022-08-26 08:16] LABS: Glucose Point of Care 211 mg/dL (70-110)
[2022-08-26 12:03] LABS: Glucose Point of Care 303 mg/dL (70-110)
[2022-09-06 12:50] LABS: Basophils # 0.1 10^3/uL (0.0-0.1); Basophils % 0.3 %; Eosinophils # 0.1 10^3/uL (0.0-0.8); Eosinophils % 0.4 %; Hematocrit 32.8 % (42.0-52.0); Hemoglobin 10.3 g/dL (11.7-16.6); Lymphocytes # 10.3 10^3/uL (0.8-4.8); Lymphocytes % 60.4 %; Mean Corpuscular HGB Conc 31.4 g/dL (30.0-36.0); Mean Corpuscular Hemoglobin 29.4 pg (28.0-34.0); Mean Corpuscular Volume 93.7 fl (80-94); Mean Platelet Volume 11.2 fL (7.4-10.4); Monocytes # 1.1 10^3/uL (0.2-0.9); Monocytes % 6.3 %; Neutrophils # 4.75 10^3/uL (1.8-7.7); Neutrophils % 27.8 %; Nucleated Red Blood Cells # 0.1 /100WBC; Nucleated Red Blood Cells % 0.4 %; Platelet Count 44 10^3/cmm (130-400); Red Cell Distribution Width 16.8 % (12.1-15.1)
[2022-09-06 13:13] LABS: Alanine Aminotransferase 69 U/L (0-41); Albumin Level 3.7 g/dL (3.5-5.2); Alkaline Phosphatase 511 U/L (40-130); Anion Gap 19.1 (5-19); Aspartate Amino Transferase 42 U/L (0-40); Calcium 7.6 mg/dL (8.5-10.5); Carbon Dioxide 17 mmol/L (22-29); Chloride 101 mmol/L (98-107); Globulin 2.1 g/dL (1.3-4.6); Glucose 126 mg/dL (65-115); Osmolality Calculated 301 mOsm/kg (285-295); Potassium 5.1 mmol/L (3.5-5.1); Sodium 132 mmol/L (136-145); Total Bilirubin 1.2 mg/dL (0.15-1.2); Total Protein 5.8 g/dL (6.6-8.7)
[2022-09-06 13:25] LABS: Blood Urea Nitrogen 83 mg/dL (8-23)
== END 2022-09-14 23:59 | disposition home or self-care (01) ==
PROVIDERS: PCP Family Medicine; Visit Provider Internal Medicine Medical Oncology
DX: D72.820 Lymphocytosis (symptomatic) (principal); D64.9 Anemia, unspecified; D69.6 Thrombocytopenia, unspecified; M54.50 Low back pain, unspecified; M89.9 Disorder of bone, unspecified; R97.20 Elevated prostate specific antigen [PSA]; N28.89 Other specified disorders of kidney and ureter; E87.20 Acidosis, unspecified; R33.9 Retention of urine, unspecified; Z79.818 Long term (current) use of other agents affecting estrogen receptors and estrogen levels; Z79.891 Long term (current) use of opiate analgesic; Z79.899 Other long term (current) drug therapy; Z87.891 Personal history of nicotine dependence
CPT/HCPCS: 36415; 36416; 36430; 51702; 80048; 80053; 82784; 82962; 83615; 83883; 84153; 84550; 85007; 85025; 86850; 86900; 86920; 96365; 96402; 99205; 99214; 99215; J2704; J7030; J7040; J7050; J9217; P9016

== ENCOUNTER → 2022-09-15 13:55 | Outpatient (BNVA) | payer MEDICARE, MEDICAID, SELFPAY | PROVIDERS: PCP Family Medicine; Visit Provider Thoracic Surgery (Cardiothoracic Vascular Surgery) | DX: L89.152 Pressure ulcer of sacral region, stage 2 (principal) | CPT/HCPCS: 99212; A6212 ==